=== PATIENT | male | born 1945 | race Caucasian/White ===

== ENCOUNTER 2021-03-25 06:18 | Inpatient (IN) | payer OTHER, SELFPAY ==
[2021-03-25] VITALS (12 sets, daily range): BP systolic 140–172; BP diastolic 69–91; PULSE 91–115; RESP 16–28; TEMP 36.2–37.2; O2SAT 85–95; BMI 29.7; BMI 27.8
--- NOTE | 2021-03-25 06:41 | CT_ITS ---
We are attempting to reach an attending provider to discuss findings. An addendum with communication details will be sent when the communication is complete. EXAM: CT ANGIOGRAPHY CHEST WITHOUT AND WITH INTRAVENOUS CONTRAST CLINICAL INDICATION: Lower abdominal pain, suspected COVID TECHNIQUE: Helically acquired angiography images were obtained of the chest without and with intravenous contrast. This CT exam was performed using one or more of the following dose reduction techniques: automated exposure control, adjustment of the mA and/or kV according to patient size, and/or use of iterative reconstruction technique. This report was created using [employer] report generation technology. MIP reconstructed images were created and reviewed. CONTRAST: IV 100mL Isovue-370 COMPARISON: None. FINDINGS: PULMONARY ARTERIES: Small, subsegmental filling defects/emboli of the right lower lobe (image 77 series 2, for instance). No saddle embolus. Normal in caliber. AORTA: See below. GREAT VESSELS OF AORTIC ARCH: Unremarkable. Normal in caliber. No evidence of dissection. LUNGS AND PLEURAL SPACES: Multilobar interstitial and groundglass opacities with posterior dominant consolidative infiltrates. No mass. No pleural effusion or thickening. No pneumothorax. HEART: Coronary artery atherosclerosis. Mild atherosclerosis of the thoracic aorta. No pericardial effusion. No signs of right heart strain. MEDIASTINUM: Mildly prominent lymph nodes of the bilateral jorge and mediastinum without dominant destiny mass. Small hiatal hernia. Esophagus is unremarkable. THYROID: Unremarkable. No thyroid lesions. BONES/JOINTS: Unremarkable. No suspicious lytic or blastic abnormality. CT/CTA Chest W/WO Contrast IMPRESSION: 1. Small, subsegmental pulmonary artery filling defects/emboli of the right lower lobe (image 77 series 2, for instance). No saddle embolus. No CTA evidence of right heart strain. 2. Multilobar interstitial and groundglass opacities with posterior dominant consolidative infiltrates. Imaging features are commonly reported with COVID pneumonia. Electronically Signed: Balaji Warren MD (Brooks) at 8:14 EST , Service support ,
--- NOTE | 2021-03-25 06:41 | EKG12_ITS ---
Test Reason : ABD PAIN Blood Pressure : / mmHG Vent. Rate : 106 BPM Atrial Rate : 106 BPM P-R Int : 158 ms QRS Dur : 090 ms QT Int : 366 ms P-R-T Axes : 063 -24 011 degrees QTc Int : 486 ms Sinus tachycardia Inferior infarct , age undetermined Abnormal ECG Confirmed by KENDALL PAIGE, ROBINA ([id number]), movie editor TELLY LAMB ([id number]) on 03/27/2021 6:58:01 AM Referred By: LIVIER Confirmed By:ROBINA ARGUETA MD
--- NOTE | 2021-03-25 06:42 | CT_ITS ---
EXAM: CT ABDOMEN AND PELVIS WITH INTRAVENOUS CONTRAST CLINICAL INDICATION: LLQ pain TECHNIQUE: Helically acquired images were obtained of the abdomen and pelvis with intravenous contrast. This CT exam was performed using one or more of the following dose reduction techniques: automated exposure control, adjustment of the mA and/or kV according to patient size, and/or use of iterative reconstruction technique. This report was created using [employer] report generation technology. CONTRAST: IV 100mL Isovue-370 COMPARISON: None. FINDINGS: LOWER THORAX: Lung bases described on chest CTA, performed concurrently. Small hiatal hernia. No cardiomegaly. No significant pericardial effusion. ABDOMEN: LIVER: Unremarkable. Homogeneous. No focal mass. GALLBLADDER AND BILE DUCTS: Unremarkable. No calcified gallstones. No gallbladder distention or wall edema. No intra- or extrahepatic biliary ductal dilation. PANCREAS: Unremarkable. No focal cystic or solid mass. SPLEEN: Moderate sized area of diminished enhancement involving the medial spleen (image 22 series 3). ADRENALS: Unremarkable. No nodules. KIDNEYS AND URETERS: Unremarkable. Normal renal size and position. No hydronephrosis. STOMACH AND BOWEL: Diverticulosis throughout the colon. No pericolonic stranding. No stomach or bowel distention. No focal inflammatory change. PELVIS: APPENDIX: No evidence of acute appendicitis. BLADDER: Unremarkable. REPRODUCTIVE: Unremarkable as visualized. No mass. ABDOMEN and PELVIS: INTRAPERITONEAL SPACE: Unremarkable. No ascites or other fluid collection. No free air. BONES/JOINTS: Degenerative changes of the lumbar spine. No suspicious lytic or blastic abnormality. SOFT TISSUES: Small fat-containing right inguinal hernia. VASCULATURE: Atherosclerosis of the abdominal aorta and iliac arteries. Abdominal aorta is non-dilated. LYMPH NODES: Unremarkable. No enlarged lymph nodes. CT/Abdomen/Pelvis W IV Cont ONLY IMPRESSION: Moderate sized area of diminished enhancement involving the medial spleen (image 22 series 3). Suspect splenic infarction. N.B. : The above Results were Read Back by Balaji Warren MD (Brooks) to MD Nemo, and understanding confirmed on 03/25/2021 08:18:11 (ET). Electronically Signed: Balaji Warren MD (Brooks) at 8:19 EST , Service support ,
--- NOTE | 2021-03-25 06:43 | EX.ED.DYSGE1 ---
HPI <Dr. Ishaan Trejo MD - Last Filed: 03/25/21 22:21> History of Present Illness Chief Complaint: Abd Pain Informant: patient Narrative Narrative: Patient's primary reason for coming in is left lower quadrant pain. This started last night at around 10:00 but seems to be worsening. He has had some nausea and dry heaves at home which is what brought him in. No diarrhea or blood in the stool. He does have a history of diverticula but has never had diverticulitis. Pain does not radiate anywhere. Patient also has pulmonary complaints. He started with Covid type symptoms on approximately the sixth of this month. He tested positive on the . He thought he was getting better but then then over the last few days he seems to be worsening. He is thinks he is coughing a little bit more and he is more short of breath than he was. He is not having chest pain. No hemoptysis. No leg pain or swelling. Patient is not the best informant for his past medical history. Past medical history: Diabetes and diabetic neuropathy Medications include medications for his neuropathy and diabetes but he cannot name them. Allergy to penicillin Prior surgery: Heart catheterization but he was told everything was normal and no stents Lives independently, former smoker quit many years ago. [facility] <Dr. Ishaan Trejo MD - Last Filed: 03/25/21 22:21> [facility] Medical History (Updated 03/25/21 @ 15:[address] Bacilio Yuan MD) Benign prostatic hyperplasia Diabetes mellitus, type 2 Hyperlipidemia Home Medications atorvastatin 20 mg PO QHS 03/25/21 [History Last Taken Unknown] calcium polycarbophil 625 mg PO DAILY 03/25/21 [History Last Taken Unknown] camphor-menthol 1 applic TOPICAL 5X/DAY PRN 03/25/21 [History Last Taken Unknown] cetirizine 10 mg PO DAILY 03/25/21 [History Last Taken Unknown] cholecalciferol (vitamin D3) 50 mcg PO DAILY 03/25/21 [History Last Taken Unknown] colestipol 1 g PO BID 03/25/21 [History Last Taken Unknown] cyanocobalamin (vitamin B-12) 1,000 mcg PO DAILY 03/25/21 [History Last Taken Unknown] cyclosporine 1 drp EACH EYE Q12H 03/25/21 [History Last Taken Unknown] diclofenac sodium 2 g TOPICAL BID 03/25/21 [History Last Taken Unknown] empagliflozin 12.5 mg PO DAILY 03/25/21 [History Last Taken Unknown] finasteride 5 mg PO DAILY 03/25/21 [History Last Taken Unknown] fluticasone propionate 2 spray INTRANASAL DAILY 03/25/21 [History Last Taken Unknown] hydrocortisone 1 applic TOPICAL BID PRN 03/25/21 [History Last Taken Unknown] ketoconazole 1 applic TOPICAL DAILY 03/25/21 [History Last Taken Unknown] pregabalin 100 mg PO BID 03/25/21 [History Last Taken Unknown] tamsulosin 0.8 mg PO QHS 03/25/21 [History Last Taken Unknown] vardenafil 20 mg PO DAILY PRN 03/25/21 [History Last Taken Unknown] vit C-vit [id number] [Ocuvite] 1 cap PO BID 03/25/21 [History Last Taken Unknown] Allergy/AdvReac Type Severity Reaction Status Date / Time Penicillins [PCN] Allergy Shortness Verified 03/25/21 06:20 of breath Family History (Updated 03/25/21 @ 15:[address] Bacilio Yuan MD) Other Cancer Social History Smoking Status: Former smoker ROS <Dr. Ishaan Trejo MD - Last Filed: 03/25/21 22:21> ROS ED Constitutional Constitutional ED: Reports subjective Eyes Eyes: Denies blurry vision ENT ENT ED: Reports rhinorrhea and sore throat Cardiovascular Cardiovascular: Denies chest pain or palpitations Respiratory/Chest Respiratory/Chest: Reports cough, dyspnea and dyspnea on exertion; Denies sputum Gastrointestinal Gastrointestinal: Reports abdominal pain, nausea and vomiting; Denies diarrhea Genitourinary Genitourinary ED: Denies dysuria or hematuria Musculoskeletal Musculoskeletal: Denies back pain Integumentary Denies rash Neurologic Neurologic: Denies headache(s), paresthesias or weakness Endocrine Endocrinology: Denies polydipsia or polyuria Allergic/Immunologic Allergic/Immunologic ED: Denies urticaria EXAM <Dr. Ishaan Trejo MD - Last Filed: 03/25/21 22:21> Physical Exam Const Vital Signs: 03/25/21 06:19 03/25/21 06:20 03/25/21 06:54 Temperature 98.4 F Temperature Source Oral Pulse Rate 115 H 108 H Respiratory Rate 22 H 28 H Blood Pressure 172/90 H 166/85 H Blood Pressure Mean 117 112 Pulse Ox 85 88 95 Oxygen Delivery Method Room Air Nasal Cannula Nasal Cannula Oxygen Flow Rate (L/min) 4 4 Patient is nontoxic but he does look somewhat ill. He has increased work of breathing. He looks a little bit uncomfortable. Positive well nourished and well developed General Appearance ED: well developed HEENT Reports dry mucous membranes Negative for trauma Mouth ED: Yes dry mucous membranes Mouth: dry mucous membranes Eyes General Eye ED: Negative for pale conjunctiva or scleral icterus Neck no JVD Resp No clear to auscultation bilaterally Resp Narrative: Bilateral coarse breath sounds. Effort and Inspection: Negative for pain with movement Auscultation: rhonchi and diminished lung sounds; Negative for rales or wheezes Cardio regular rhythm Rate: tachycardic GI normal to inspection, nondistended, normoactive bowel sounds GI Narrative: Abdomen is soft and nondistended. However, he does have reproducible tenderness toward the left lower quadrant. No rebound or guarding. Palpation: soft; Negative for guarding or rebound tenderness present Back/Spine no CVA tenderness Extremity normal to inspection General Extremety ED: Negative for edema or tenderness General Extremity: Negative for edema Neuro oriented x3 Sensorium / Orientation: alert Psych mental status grossly normal Skin no rashes or lesions noted <Milan Chester MD - Last Filed: 03/25/21 08:56> Physical Exam Const Vital Signs: 03/25/21 06:19 03/25/21 06:20 03/25/21 06:54 Temperature 98.4 F Temperature Source Oral Pulse Rate 115 H 108 H Respiratory Rate 22 H 28 H Blood Pressure 172/90 H 166/85 H Blood Pressure Mean 117 112 Pulse Ox 85 88 95 Oxygen Delivery Method Room Air Nasal Cannula Nasal Cannula Oxygen Flow Rate (L/min) 4 4 MDM <Dr. Ishaan Trejo MD - Last Filed: 03/25/21 22:21> [facility] MDM Narrative Medical decision making narrative: Patient's blood work showed overall normal CBC. Electrolytes were normal. Liver function tests were overall okay. Lactate was up mildly at 2.3. He was given some IV fluids. Covid was pending. Images are pending. Patient is turned over to the oncoming physician. Lab Data Attestation: I reviewed the patient's lab results. Labs: Laboratory Results - last 24 hr 03/25/21 03/25/21 03/25/21 06:30 06:30 06:30 WBC 10.7 RBC 4.58 L Hgb 14.6 Hct 42.7 MCV 93.2 MCH 31.9 MCHC 34.2 RDW Std Deviation 42.5 RDW Coeff of Quin 12.3 Plt Count 300 MPV 10.8 Immature Gran % (Auto) 1.000 H Neut % (Auto) 83.2 H Lymph % (Auto) 9.8 L [place] % (Auto) 5.5 Eos % (Auto) 0.2 Baso % (Auto) 0.3 Absolute Neuts (auto) 8.9 H Absolute Lymphs (auto) 1.05 Nucleated RBC % 0 PT INR APTT Sodium 135 L Potassium 3.6 Chloride 101 Carbon Dioxide 22.0 Anion Gap 12 BUN 14 Creatinine 0.97 Estim Creat Clear Calc 72.22 Est GFR (MDRD) Af Amer 97 Est GFR (MDRD) Non-Af 80 BUN/Creatinine Ratio 14.5 Glucose 194 H Lactic Acid 2.3 H* Calcium 8.3 L Total Bilirubin 0.60 AST 26 ALT 24 Alkaline Phosphatase 70 Troponin I High Sens 8 Total Protein 7.3 Albumin 2.0 L Globulin 5.3 H Albumin/Globulin Ratio 0.4 L Urine Color Urine Clarity Urine pH Ur Specific [place] Urine Protein Urine Glucose (UA) Urine Ketones Urine Occult Blood Urine Nitrite Urine Bilirubin Urine Urobilinogen Ur Leukocyte Esterase Urine RBC Urine WBC Ur Squamous Epith Cells Urine Bacteria Urine Mucus 03/25/21 03/25/21 06:30 08:06 WBC RBC Hgb Hct MCV MCH MCHC RDW Std Deviation RDW Coeff of Quin Plt Count MPV Immature Gran % (Auto) Neut % (Auto) Lymph % (Auto) [place] % (Auto) Eos % (Auto) Baso % (Auto) Absolute Neuts (auto) Absolute Lymphs (auto) Nucleated RBC % PT 15.3 H INR 1.3 APTT 33.3 Sodium Potassium Chloride Carbon Dioxide Anion Gap BUN Creatinine Estim Creat Clear Calc Est GFR (MDRD) Af Amer Est GFR (MDRD) Non-Af BUN/Creatinine Ratio Glucose Lactic Acid Calcium Total Bilirubin AST ALT Alkaline Phosphatase Troponin I High Sens Total Protein Albumin Globulin Albumin/Globulin Ratio Urine Color Yellow Urine Clarity Clear Urine pH 5.0 Ur Specific [place] 1.020 Urine Protein 30 H Urine Glucose (UA) 1000 H Urine Ketones 150 A* Urine Occult Blood 10 H Urine Nitrite Negative Urine Bilirubin Negative Urine Urobilinogen Normal Ur Leukocyte Esterase Negative Urine RBC 0-5 SEEN Urine WBC 0 SEEN Ur Squamous Epith Cells 0 SEEN Urine Bacteria 0 SEEN Urine Mucus 0 SEEN Radiography Diagnostic Testing: Clinical Impression(s) from Imaging Studies Chest CTA 03/25/21 06:41 IMPRESSION: 1. Small, subsegmental pulmonary artery filling defects/emboli of the right lower lobe (image 77 series 2, for instance). No saddle embolus. No CTA evidence of right heart strain. 2. Multilobar interstitial and groundglass opacities with posterior dominant consolidative infiltrates. Imaging features are commonly reported with COVID pneumonia. Electronically Signed: Balaji Warren MD (Brooks) at 8:14 EST , Service support , ADDENDUM: 03/25/21 0824 IMPRESSION: 1. Small, subsegmental pulmonary artery filling defects/emboli of the right lower lobe (image 77 series 2, for instance). No saddle embolus. No CTA evidence of right heart strain. 2. Multilobar interstitial and groundglass opacities with posterior dominant consolidative infiltrates. Imaging features are commonly reported with COVID pneumonia. N.B. : The above Results were Read Back by Balaji Warren MD (Brooks) to MD Ashly, and understanding confirmed on 03/25/2021 08:17:12 (ET). Electronically Signed: Balaji Warren MD (Brooks) at 8:14 EST , Service support , Abdomen/Pelvis CT 03/25/21 06:42 IMPRESSION: Moderate sized area of diminished enhancement involving the medial spleen (image 22 series 3). Suspect splenic infarction. N.B. : The above Results were Read Back by Balaji Warren MD (Brooks) to MD Nemo, and understanding confirmed on 03/25/2021 08:18:11 (ET). Electronically Signed: Balaji Warren MD (Brooks) at 8:19 EST , Service support , ADDENDUM: 03/25/21825 IMPRESSION: Moderate sized area of diminished enhancement involving the medial spleen (image 22 series 3). Suspect splenic infarction. N.B. : The above Results were Read Back by Balaji Warren MD (Brooks) to MD Nemo, and understanding confirmed on 03/25/2021 08:18:11 (ET). Electronically Signed: Balaji Warren MD (Brooks) at 8:19 EST , Service support , <Milan Chester MD - Last Filed: 03/25/21 08:56> MDM MDM Narrative Medical decision making narrative: Dr. Chester: Patient endorsed to me by Dr. Trejo to check the remaining laboratory work and CT scans on this patient. Laboratory work was reviewed. He has normal white count at 10.7, hemoglobin stable at 14.6. Sodium slightly low at 135, normal BUN and creatinine. Lactic acid is slightly elevated 2.3. He had already been given a 500 cc bolus. With his history of Covid, we are hesitant to give him a large amount of fluid bolus. I received a call from the radiologist that the patient does have lower lobe segmental pulmonary emboli, and a splenic infarct but no evidence of diverticulitis. Upon repeat examination, patient was having left upper quadrant to left flank abdominal pain. He was administered morphine 4 mg intravenously. Heparin bolus was ordered along with GTT. He was warned of the risk of bleeding intracranially and in the GI system and acknowledges understanding. Patient was discussed with the hospitalist, Dr. Yuan, who will admit the patient to the PCU. Patient's Covid test is negative, however he has been 2 weeks into his symptoms. Disposition is admit in stable condition. Lab Data Attestation: I reviewed the patient's lab results. Labs: Laboratory Results - last 24 hr 03/25/21 03/25/21 03/25/21 06:30 06:30 06:30 WBC 10.7 RBC 4.58 L Hgb 14.6 Hct 42.7 MCV 93.2 MCH 31.9 MCHC 34.2 RDW Std Deviation 42.5 RDW Coeff of Quin 12.3 Plt Count 300 MPV 10.8 Immature Gran % (Auto) 1.000 H Neut % (Auto) 83.2 H Lymph % (Auto) 9.8 L [place] % (Auto) 5.5 Eos % (Auto) 0.2 Baso % (Auto) 0.3 Absolute Neuts (auto) 8.9 H Absolute Lymphs (auto) 1.05 Nucleated RBC % 0 PT INR APTT Sodium 135 L Potassium 3.6 Chloride 101 Carbon Dioxide 22.0 Anion Gap 12 BUN 14 Creatinine 0.97 Estim Creat Clear Calc 72.22 Est GFR (MDRD) Af Amer 97 Est GFR (MDRD) Non-Af 80 BUN/Creatinine Ratio 14.5 Glucose 194 H Lactic Acid 2.3 H* Calcium 8.3 L Total Bilirubin 0.60 AST 26 ALT 24 Alkaline Phosphatase 70 Troponin I High Sens 8 Total Protein 7.3 Albumin 2.0 L Globulin 5.3 H Albumin/Globulin Ratio 0.4 L Urine Color Urine Clarity Urine pH Ur Specific [place] Urine Protein Urine Glucose (UA) Urine Ketones Urine Occult Blood Urine Nitrite Urine Bilirubin Urine Urobilinogen Ur Leukocyte Esterase Urine RBC Urine WBC Ur Squamous Epith Cells Urine Bacteria Urine Mucus 03/25/21 03/25/21 06:30 08:06 WBC RBC Hgb Hct MCV MCH MCHC RDW Std Deviation RDW Coeff of Quin Plt Count MPV Immature Gran % (Auto) Neut % (Auto) Lymph % (Auto) [place] % (Auto) Eos % (Auto) Baso % (Auto) Absolute Neuts (auto) Absolute Lymphs (auto) Nucleated RBC % PT 15.3 H INR 1.3 APTT 33.3 Sodium Potassium Chloride Carbon Dioxide Anion Gap BUN Creatinine Estim Creat Clear Calc Est GFR (MDRD) Af Amer Est GFR (MDRD) Non-Af BUN/Creatinine Ratio Glucose Lactic Acid Calcium Total Bilirubin AST ALT Alkaline Phosphatase Troponin I High Sens Total Protein Albumin Globulin Albumin/Globulin Ratio Urine Color Yellow Urine Clarity Clear Urine pH 5.0 Ur Specific [place] 1.020 Urine Protein 30 H Urine Glucose (UA) 1000 H Urine Ketones 150 A* Urine Occult Blood 10 H Urine Nitrite Negative Urine Bilirubin Negative Urine Urobilinogen Normal Ur Leukocyte Esterase Negative Urine RBC 0-5 SEEN Urine WBC 0 SEEN Ur Squamous Epith Cells 0 SEEN Urine Bacteria 0 SEEN Urine Mucus 0 SEEN Radiography Diagnostic Testing: Clinical Impression(s) from Imaging Studies Chest CTA 03/25/21 06:41 IMPRESSION: 1. Small, subsegmental pulmonary artery filling defects/emboli of the right lower lobe (image 77 series 2, for instance). No saddle embolus. No CTA evidence of right heart strain. 2. Multilobar interstitial and groundglass opacities with posterior dominant consolidative infiltrates. Imaging features are commonly reported with COVID pneumonia. Electronically Signed: Balaji Warren MD (Brooks) at 8:14 EST , Service support , ADDENDUM: 03/25/21 0824 IMPRESSION: 1. Small, subsegmental pulmonary artery filling defects/emboli of the right lower lobe (image 77 series 2, for instance). No saddle embolus. No CTA evidence of right heart strain. 2. Multilobar interstitial and groundglass opacities with posterior dominant consolidative infiltrates. Imaging features are commonly reported with COVID pneumonia. N.B. : The above Results were Read Back by Balaji Warren MD (Brooks) to MD Ashly, and understanding confirmed on 03/25/2021 08:17:12 (ET). Electronically Signed: Balaji Warren MD (Brooks) at 8:14 EST , Service support , Abdomen/Pelvis CT 03/25/21 06:42 IMPRESSION: Moderate sized area of diminished enhancement involving the medial spleen (image 22 series 3). Suspect splenic infarction. N.B. : The above Results were Read Back by Balaji Warren MD (Brooks) to MD Nemo, and understanding confirmed on 03/25/2021 08:18:11 (ET). Electronically Signed: Balaji Warren MD (Brooks) at 8:19 EST , Service support , ADDENDUM: 03/25/21 0826 IMPRESSION: Moderate sized area of diminished enhancement involving the medial spleen (image 22 series 3). Suspect splenic infarction. N.B. : The above Results were Read Back by Balaji Warren MD (Brooks) to MD Nemo, and understanding confirmed on 03/25/2021 08:18:11 (ET). Electronically Signed: Balaji Warren MD (Brooks) at 8:19 EST , Service support , Discharge Plan Dx/Rx/DC Orders Clinical Impression: Pulmonary emboli, Splenic infarct, COVID, Abdominal pain Disposition Disposition: Acute Care Hospital [facility] Discharge Date/Time: 03/25/21 09:31
--- NOTE | 2021-03-25 06:48 | NURSING ---
NO OLD EKGS
[2021-03-25] MEDS: Ondansetron 4 MG/2 ML Vial IV (06:52)
[2021-03-25] MEDS: Morphine 4 MG/ML Syringe IV ×6 (06:55→21:40)
[2021-03-25 06:58] LABS: Absolute Lymphocyte Count 1.05 X10^3/uL (0.83-4.51); Absolute Neutrophil Count 8.9 X10^3/uL (2.0-7.7); Basophil# 0.03 X10^3/uL; Basophil% 0.3 % (0-1); Eosinophil# 0.02 X10^3/uL; Eosinophils% 0.2 % (0-5); Hematocrit 42.7 % (40-54); Hemoglobin 14.6 g/dL (13.0-16.5); Lymphocyte # 1.05 X10^3/ul (0.83-4.51); Lymphocyte % 9.8 % (19-41); Mean Corp Hgb Conc 34.2 g/dL (32-36); Mean Corpuscular Hgb 31.9 pg (27.0-32.0); Mean Corpuscular Volume 93.2 fL (80-94); Mean Platelet Vol. 10.8 fl (6.2-12.0); Monocyte# 0.59 X10^3/uL; Monocyte% 5.5 % (0-10); NRBC Flagged by Analyzer 0 % (0-5); Neutrophil # 8.89 X10^3/uL (2.7-7.7); Neutrophil % 83.2 % (47-70); Platelet Count 300 K/mm3 (150-450); RBC Distribution Width CV 12.3 % (11.6-14.6); RBC Distribution Width SD 42.5 fl (35.1-43.9); Red Blood Count 4.58 M/mm3 (4.6-6.2); White Blood Count 10.7 K/mm3 (4.4-11.0)
[2021-03-25 07:10] LABS: ALB/GLOB Ratio 0.4 RATIO (0.9-2.4); AST(SGOT) 26 U/L (15-37); Alanine Aminotransfer ALT/SGPT 24 U/L (16-61); Alkaline Phosphatase 70 U/L (45-117); Anion Gap 12 (5-15); BUN 14 mg/dL (7-18); BUN/Creat Ratio 14.5 RATIO (10-20); Calcium,Total 8.3 mg/dL (8.5-10.1); Chloride 101 mmol/L (98-107); Creatinine, Serum 0.97 mg/dL (0.70-1.30); EST Glomerular Filtration Rate 80 mL/min (>60); Est Glom Filt Rate - Afr Amer 97 mL/min (>60); Estimated Creatinine Clearance 72.22 ml/min; Globulin 5.3 g/dL (2.2-4.2); Glucose 194 mg/dL (74-106); Potassium 3.6 mmol/L (3.5-5.1); Protein, Total 7.3 g/dL (6.4-8.2); Sodium Level 135 mmol/L (136-145); Troponin-I HS 8 pg/mL (3.0-78.0)
[2021-03-25 07:19] LABS: Lactic Acid 2.3 mmol/L (0.4-1.9)
[2021-03-25 08:10] LABS: Bacteria 0 SEEN /hpf (None Seen); Mucous, Urine 0 SEEN /hpf (<or=2+); Squamous Epithelial Cells - UA 0 SEEN /hpf (0-5); White Blood Cells 0 SEEN /hpf (0-5)
[2021-03-25 08:13] LABS: Color, Urine Yellow (Yellow); Glucose, Dipstick 1000 mg/dl (Normal); Leukocyte Esterase-Dipstick Negative /ul (Negative); Nitrite-Dipstick Negative (Negative); Occult Blood-Urine 10 /ul (Negative); Protein-Dipstick 30 mg/dl (Negative); Urine Bilirubin Dipstick Negative (Negative); Urine Clarity Clear (Clear); Urine Urobilinogen Normal (Normal)
[2021-03-25 08:17] LABS: Ketone-Dipstick 150 mg/dl (Negative)
[2021-03-25 08:22] LABS: Red Blood Cells-Urine 0-5 SEEN /hpf (0-5)
--- NOTE | 2021-03-25 08:49 | NURSING ---
CALLED NEDA WILKINSON AND LEFT MESSAGE.
--- NOTE | 2021-03-25 09:01 | NURSING ---
PCU [facility] PULMON[facility] EMBOLI, SPLENIC INFARCT
[2021-03-25] MEDS: Heparin Injection (Vial) 5,000 UNIT/ML VIAL 7500 UNIT IV (09:09)
[2021-03-25 09:12] LABS: International Normalized Ratio 1.3; Partial Thromboplast Time 33.3 Seconds (24.1-36.2); Prothrombin Time (Protime)PT. 15.3 SECONDS (11.7-14.9)
[2021-03-25] MEDS: HEPARIN/D5w 25,000 UNITS 25,000 UNITS/250 ML IV.SOLN. 14 UNITS IV (09:28)
[2021-03-25] MEDS: 0.9% Normal Saline 1,000 ML 75 ML IV ×2 (10:50→22:53)
[2021-03-25 10:52] LABS: Reflex Lactate? Y
--- NOTE | 2021-03-25 11:43 | NURSING ---
NEDA PRATER, CALLED BACK. SHE RECEIVED INFO ON PATIENT
[2021-03-25 11:50] LABS: Lactic Acid 1.1 mmol/L (0.4-1.9)
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
[2021-03-25] MEDS: dexAMETHasone 4 MG Tablet 6 MG PO (14:04)
[2021-03-25] MEDS: APIXABAN 5 MG TABLET 10 MG PO ×2 (14:05→21:37)
--- NOTE | 2021-03-25 15:19 | HP.PCM.HOS_ITS ---
HPI - General General Date of Admission: 03/25/21 HPI Narrative PACO KUMAR, is a 75 M who presents to the hospital with worsening shortness of breath and left-sided abdominal pain. He tested positive for Covid on the but started having symptoms around 07 March. He was not needing any oxygen until he presented to this hospital where he was found to have a pulse ox of 85% on room air. He is maintaining his oxygen saturations now on 2 L nasal cannula. He was found to have a right-sided subsegmental PE as well as a splenic infarct on CT scan. He was initially started on a heparin drip and transition to p.o. Eliquis. He denies any recent illness and does not have blood clots in the family. CT scan was negative for any pancreatitis or infectious etiology for the splenic infarct. There is evidence of hypercoagulable state in the setting of Covid which could be the cause of this. [facility] Medical History (Updated 03/25/21 @ 15:[address] Bacilio Yuan MD) Benign prostatic hyperplasia Diabetes mellitus, type 2 Hyperlipidemia Medical History no medical history Home Medications atorvastatin 20 mg PO QHS 03/25/21 [History Last Taken Unknown] calcium polycarbophil 625 mg PO DAILY 03/25/21 [History Last Taken Unknown] camphor-menthol 1 applic TOPICAL 5X/DAY PRN 03/25/21 [History Last Taken Unknown] cetirizine 10 mg PO DAILY 03/25/21 [History Last Taken Unknown] cholecalciferol (vitamin D3) 50 mcg PO DAILY 03/25/21 [History Last Taken Unknown] colestipol 1 g PO BID 03/25/21 [History Last Taken Unknown] cyanocobalamin (vitamin B-12) 1,000 mcg PO DAILY 03/25/21 [History Last Taken Unknown] cyclosporine 1 drp EACH EYE Q12H 03/25/21 [History Last Taken Unknown] diclofenac sodium 2 g TOPICAL BID 03/25/21 [History Last Taken Unknown] empagliflozin 12.5 mg PO DAILY 03/25/21 [History Last Taken Unknown] finasteride 5 mg PO DAILY 03/25/21 [History Last Taken Unknown] fluticasone propionate 2 spray INTRANASAL DAILY 03/25/21 [History Last Taken Unknown] hydrocortisone 1 applic TOPICAL BID PRN 03/25/21 [History Last Taken Unknown] ketoconazole 1 applic TOPICAL DAILY 03/25/21 [History Last Taken Unknown] pregabalin 100 mg PO BID 03/25/21 [History Last Taken Unknown] tamsulosin 0.8 mg PO QHS 03/25/21 [History Last Taken Unknown] vardenafil 20 mg PO DAILY PRN 03/25/21 [History Last Taken Unknown] vit C-vit [id number] [Ocuvite] 1 cap PO BID 03/25/21 [History Last Taken Unknown] Allergy/AdvReac Type Severity Reaction Status Date / Time Penicillins [PCN] Allergy Shortness Verified 03/25/21 06:20 of breath Family History (Updated 03/25/21 @ 15:[address] Bacilio Yuan MD) Other Cancer no surgical history Social History Smoking Status: Former smoker ROS Constitutional Constitutional: Denies chills, fatigue, fever(s) or malaise Eyes Eyes: Denies blurry vision ENT HEENT: Denies headache(s) or nasal discharge Cardiovascular Cardiovascular: Reports dyspnea on exertion; Denies chest pain or syncope Respiratory/Chest Respiratory/Chest: Reports shortness of breath at rest; Denies cough or shortness of breath with exertion Gastrointestinal Gastrointestinal: Reports abdominal pain; Denies constipation, diarrhea, nausea or vomiting Genitourinary Genitourinary: Denies dysuria Neurologic Neurologic: Denies focal weakness, numbness or tremor(s) Psychiatric Psychiatric: Denies anxiety or depression Vital Signs Vital Signs Vital Signs: 03/25/21 06:19 03/25/21 06:20 03/25/21 06:54 Temperature 98.4 F Temperature Source Oral Pulse Rate 115 H 108 H Respiratory Rate 22 H 28 H Blood Pressure 172/90 H 166/85 H Blood Pressure Mean 117 112 Blood Pressure Source Blood Pressure Position Blood Pressure Location Pulse Ox 85 88 95 Oxygen Delivery Method Room Air Nasal Cannula Nasal Cannula Oxygen Flow Rate (L/min) 4 4 03/25/21 08:56 03/25/21 09:29 03/25/21 10:00 Temperature 97.1 F L 99.0 F Temperature Source Temporal Oral Pulse Rate 104 H 100 96 Respiratory Rate 22 H 19 H 18 Blood Pressure 160/87 H 155/91 H 160/81 H Blood Pressure Mean 111 112 107 Blood Pressure Source Monitor Blood Pressure Position Semi-Fowlers Blood Pressure Location Right Arm Pulse Ox 93 93 95 Oxygen Delivery Method Nasal Cannula Nasal Cannula Nasal Cannula Oxygen Flow Rate (L/min) 3 3 2 03/25/21 10:48 03/25/21 14:45 Temperature Temperature Source Pulse Rate 95 Respiratory Rate Blood Pressure Blood Pressure Mean Blood Pressure Source Blood Pressure Position Blood Pressure Location Pulse Ox 94 Oxygen Delivery Method Nasal Cannula Oxygen Flow Rate (L/min) 2 Weight Weight: 204 lb 12.951 oz Body Mass Index (BMI) 27.8 Physical Exam Const alert, oriented x3 and no apparent distress General Appearance: cooperative HEENT normocephalic and moist oral mucous membranes Eyes PERRL, EOMs intact bilaterally and conjunctivae normal Neck supple and no JVD Resp normal respiratory effort, no retractions and no use of accessory muscles Auscultation: wheezes; Negative for crackles, rales or rhonchi Cardio regular rate, regular rhythm, S1 normal heart sound, S2 normal heart sound and no murmurs GI soft to palpation, non-tender and non-distended; Negative for hepatosplenomegaly Extremity no clubbing, cyanosis or edema Skin no rashes or lesions noted Neuro no focal motor deficits and no sensory deficits noted Psych affect normal Appearance: appropriate Results Lab / Micro Data Result Diagrams: 03/25/21 06:30 03/25/21 06:30 Labs: Laboratory Results - last 24 hr 03/25/21 06:30: WBC 10.7, RBC 4.58 L, Hgb 14.6, Hct 42.7, MCV 93.2, MCH 31.9, MCHC 34.2, RDW Std Deviation 42.5, RDW Coeff of Quin 12.3, Plt Count 300, MPV 10.8, Immature Gran % (Auto) 1.000 H, Neut % (Auto) 83.2 H, Lymph % (Auto) 9.8 L , [place] % (Auto) 5.5, Eos % (Auto) 0.2, Baso % (Auto) 0.3, Absolute Neuts (auto) 8.9 H, Absolute Lymphs (auto) 1.05, Nucleated RBC % 0 03/25/21 06:30: Sodium 135 L, Potassium 3.6, Chloride 101, Carbon Dioxide 22.0, Anion Gap 12, BUN 14, Creatinine 0.97, Estim Creat Clear Calc 72.22, Est GFR (MDRD) Af Amer 97, Est GFR (MDRD) Non-Af 80, BUN/Creatinine Ratio 14.5, Glucose 194 H, Calcium 8.3 L, Total Bilirubin 0.60, AST 26, ALT 24, Alkaline Phosphatase 70, Troponin I High Sens 8, Total Protein 7.3, Albumin 2.0 L, Globulin 5.3 H, Albumin/Globulin Ratio 0.4 L 03/25/21 06:30: Lactic Acid 2.3 H* 03/25/21 06:30: PT 15.3 H, INR 1.3, APTT 33.3 03/25/21 08:06: Urine Color Yellow, Urine Clarity Clear, Urine pH 5.0, Ur Specific [place] 1.020, Urine Protein 30 H, Urine Glucose (UA) 1000 H, Urine Ketones 150 A*, Urine Occult Blood 10 H, Urine Nitrite Negative, Urine Bilirubin Negative, Urine Urobilinogen Normal, Ur Leukocyte Esterase Negative, Urine RBC 0-5 SEEN, Urine WBC 0 SEEN, Ur Squamous Epith Cells 0 SEEN, Urine Bacteria 0 SEEN, Urine Mucus 0 SEEN 03/25/21 11:07: Lactic Acid 1.1 Micro: Microbiology 03/25/21 06:47 Nasal Secretion SARS-CoV-2 Antigen (Rapid) - Final Radiology Impression Chest CTA 03/25/21 06:41 IMPRESSION: 1. Small, subsegmental pulmonary artery filling defects/emboli of the right lower lobe (image 77 series 2, for instance). No saddle embolus. No CTA evidence of right heart strain. 2. Multilobar interstitial and groundglass opacities with posterior dominant consolidative infiltrates. Imaging features are commonly reported with COVID pneumonia. Electronically Signed: Balaji Warren MD (Brooks) at 8:14 EST , Service support , ADDENDUM: 03/25/21 9840 IMPRESSION: 1. Small, subsegmental pulmonary artery filling defects/emboli of the right lower lobe (image 77 series 2, for instance). No saddle embolus. No CTA evidence of right heart strain. 2. Multilobar interstitial and groundglass opacities with posterior dominant consolidative infiltrates. Imaging features are commonly reported with COVID pneumonia. N.B. : The above Results were Read Back by Balaji Warren MD (Brooks) to MD Ashly, and understanding confirmed on 03/25/2021 08:17:12 (ET). Electronically Signed: Balaji Warren MD (Brooks) at 8:14 EST , Service support , Abdomen/Pelvis CT 03/25/21 06:42 IMPRESSION: Moderate sized area of diminished enhancement involving the medial spleen (image 22 series 3). Suspect splenic infarction. N.B. : The above Results were Read Back by Balaji Warren MD (Brooks) to MD Nemo, and understanding confirmed on 03/25/2021 08:18:11 (ET). Electronically Signed: Balaji Warren MD (Brooks) at 8:19 EST , Service support , ADDENDUM: 03/25/21 0826 IMPRESSION: Moderate sized area of diminished enhancement involving the medial spleen (image 22 series 3). Suspect splenic infarction. N.B. : The above Results were Read Back by Balaji Warren MD (Brooks) to MD Nemo, and understanding confirmed on 03/25/2021 08:18:11 (ET). Electronically Signed: Balaji Warren MD (Brooks) at 8:19 EST , Service support , Assessment & Plan Assessment/Plan (1) Splenic infarct: (2) Pulmonary emboli: (3) Pneumonia due to COVID-19 virus: PLAN: 1. Acute hypoxic respiratory failure secondary to COVID-19 pneumonia and pulmonary embolism ?We will place him on Decadron given his oxygen requirements but he is almost 20 days out from symptom onset ?Continue with incentive spirometry and Pep ?Continue with Eliquis 10 mg p.o. twice daily and transition to 5 mg p.o. twice daily on discharge ?We will have him follow-up with hematology on discharge ?He does have wheezing therefore will place him on duo nebs. He is a former smoker and states that he has an inhaler but he does not use it very frequently. He likely does have a history of COPD ?Strep urine antigen and Legionella antigen are pending 2. Splenic infarct ?Continue with IV fluids ?This is likely related to his hypercoagulable state from Covid however would recommend outpatient follow-up with hematology in regards to the infarct as well as to the pulmonary embolisms 3. DM2 ?We will hold his home blood sugar medications ?Placed on sliding scale insulin with Accu-Cheks AC at bedtime ?We will adjust insulin dosing as necessary 4. Hyperlipidemia ?Continue with Lipitor 5. BPH ?Stable ?Continue with home medications DVT: Eliquis Charges/Coding Visit Charges Inpatient E&M: 76792 Init Hosp L3
--- NOTE | 2021-03-25 16:06 | CASEMGMT ---
JULIOCESAR did talk with Jane at [facility]. JULIOCESAR explained the situation. There really is not anything that can be done. Patient knows to call the police if he feels threatened. Patient can also evict his son and he is aware of this. Shannan Juarez BANQUET SET UP PERSON DAVE
--- NOTE | 2021-03-25 16:30 | CASEMGMT ---
RN GENEVIEVE SALES PROJECT ADMINISTRATOR CM to room to meet with patient for initial transition planning/care coordination assessment. DRAKE VALLEJO introduced self and role at [facility]. Pt voices understanding and consents to assessment at this time. Pt resting in bed in no distress at this time. Pt is A/O at this time and answers all questions appropriately. Care providers, pharmacy, and demographics verified/updated at this time. PCP: Sarai RIVER. Sees Dr Mannie Hyatt [facility]: [facility]. [facility] Benefit: Yes. Gets all of his medications thru the [facility], but could get them @ [facility] for short-term fill. Anticipate pt will d/c home on Eliquis. Pt provided / day savings card and instructed on use. Pt aware to contact PCP @ [facility] to set up an appt to be seen for f/u after hospitalization and to get script from [facility] for Eliquis. Pt voices understanding. Living Will/HPOA: does not have LW or HCPOA . He would like for his brother, Musa to be his POA, as he and his are . Interested in more information but does not want to talk with SW at this time to complete paperwork. Provided information on advanced directives and given Social Service rac card with number to call if chooses in the future to utilize [facility] social work for advanced directive completion. Educated patient that, if patient so chooses, can come back to [facility] and meet with a SW as an outpatient to complete health care advanced directives. Patient expresses understanding. LNOK: Pt is , but they are . Pt wishes for 1st contact to be his brother, Musa. Pt did wish to list his on as 2nd contact. Living Arrangements: Lives in one-story home w/basement. Back entrance to home has 3 steps. Front entrance has 8-10. Son and nephew live in the in-law suite in the basement. Nephews friend lives in a trailer on his property. Pt is independent w/ADL's and IADL's. He manages his own medication and appts. Transportation: Pt states drives self and states no transportation concerns at this time. Brother will take him home @ d/c. DME: has the following DME: Has several canes and a walker, but only uses canes on occasion and does not use the walker. Has a pulse ox. No home O2. Provided w/list of local DME companies that provide Oxygen and instructed on process for home O2 set up. Pt denies having a preference. HHC/SNF: No history of either. Denies need for HHC. Pt wishes to return home and states has no concerns with going home at time of discharge. Follow for home oxygen needs and any further discharge planning/needs. Pt voices no further concerns/needs at this time. Advised pt to inform staff if any further questions/concerns/needs arise. Voices understanding. PLAN: Home w/discharge plans in place. Follow for any O2 needs @ discharge. Green sheet placed on chart w/instructions for O2 set up if pt qualifies. Pt has been given [employer] day savings card and instructed on use. Tarik HINOJOSAN RN CM
[2021-03-25 16:51] LABS: Bedside Glucose 128 mg/dL (70-110)
[2021-03-25 20:45] LABS: Partial Thromboplast Time 61.7 Seconds (24.1-36.2)
[2021-03-25] MEDS: Atorvastatin Calcium 20 MG Tablet PO (21:37)
[2021-03-25] MEDS: Pregabalin 50 MG Capsule 100 MG PO (21:37)
[2021-03-25] MEDS: Insulin Lispro 100 UNIT/ML INSULN.PEN SC (21:44)
[2021-03-25 22:16] LABS: Bedside Glucose 404 mg/dL (70-110)
[2021-03-25 23:00] LABS: Bedside Glucose 356 mg/dL (70-110)
[2021-03-26] VITALS (15 sets, daily range): BP systolic 154–175; BP diastolic 62–86; PULSE 68–100; RESP 16–18; TEMP 36.2–37.2; O2SAT 83–95
[2021-03-26] MEDS: Morphine 4 MG/ML Syringe IV ×4 (03:00→20:55)
[2021-03-26 06:27] LABS: Absolute Lymphocyte Count 0.98 X10^3/uL (0.83-4.51); Absolute Neutrophil Count 8.4 X10^3/uL (2.0-7.7); Basophil# 0.01 X10^3/uL; Basophil% 0.1 % (0-1); Hematocrit 38.6 % (40-54); Hemoglobin 13.2 g/dL (13.0-16.5); Lymphocyte # 0.98 X10^3/ul (0.83-4.51); Lymphocyte % 9.6 % (19-41); Mean Corp Hgb Conc 34.2 g/dL (32-36); Mean Corpuscular Hgb 32.5 pg (27.0-32.0); Mean Corpuscular Volume 95.1 fL (80-94); Mean Platelet Vol. 10.3 fl (6.2-12.0); Monocyte# 0.74 X10^3/uL; Monocyte% 7.3 % (0-10); NRBC Flagged by Analyzer 0 % (0-5); Neutrophil # 8.38 X10^3/uL (2.7-7.7); Neutrophil % 82.1 % (47-70); Platelet Count 291 K/mm3 (150-450); RBC Distribution Width CV 12.1 % (11.6-14.6); RBC Distribution Width SD 42.5 fl (35.1-43.9); Red Blood Count 4.06 M/mm3 (4.6-6.2); White Blood Count 10.2 K/mm3 (4.4-11.0)
[2021-03-26 07:22] LABS: ALB/GLOB Ratio 0.4 RATIO (0.9-2.4); AST(SGOT) 22 U/L (15-37); Alanine Aminotransfer ALT/SGPT 19 U/L (16-61); Albumin, Serum 1.6 g/dL (3.2-5.0); Alkaline Phosphatase 63 U/L (45-117); Anion Gap 6 (5-15); BUN 14 mg/dL (7-18); BUN/Creat Ratio 18.8 RATIO (10-20); Calcium,Total 7.8 mg/dL (8.5-10.1); Chloride 104 mmol/L (98-107); Creatinine, Serum 0.74 mg/dL (0.70-1.30); EST Glomerular Filtration Rate 109 mL/min (>60); Est Glom Filt Rate - Afr Amer 132 mL/min (>60); Estimated Creatinine Clearance 70.06 ml/min; Globulin 4.4 g/dL (2.2-4.2); Glucose 227 mg/dL (74-106); Potassium 4.3 mmol/L (3.5-5.1); Sodium Level 136 mmol/L (136-145)
[2021-03-26] MEDS: 0.9% Saline Lock 10 ML Syringe IV ×3 (10:42→20:56)
[2021-03-26] MEDS: Insulin Lispro 100 UNIT/ML INSULN.PEN SC ×3 (10:43→21:02)
[2021-03-26] MEDS: Finasteride 5 MG Tablet PO (10:43)
[2021-03-26] MEDS: dexAMETHasone 4 MG Tablet 6 MG PO (10:43)
[2021-03-26] MEDS: APIXABAN 5 MG TABLET 10 MG PO ×2 (10:43→20:55)
[2021-03-26] MEDS: Pregabalin 50 MG Capsule 100 MG PO ×2 (10:55→20:55)
--- NOTE | 2021-03-26 11:38 | PN.HOSP_ITS ---
Subjective Subjective Continues to have intermittent abdominal pain and is short of breath requiring 4 L of oxygen Objective Data Objective Data Vital Signs: Vital Signs Temp Pulse Resp BP Pulse Ox 97.5 F L 75 18 161/63 H 83 03/26/21 10:55 03/26/21 10:55 03/26/21 10:55 03/26/21 10:55 03/26/21 10:55 Oxygen Flow Rate (L/min) 6 Oxygen Delivery Method Nasal Cannula Weight: 204 lb 12.951 oz Body Mass Index (BMI) 27.8 Intake & Output: Intake and Output for Last 24 Hours 03/25/21 03/26/21 03/27/21 03:59 03:59 03:59 Intake Total 2071.08 / 2071.08 Output Total 900 / 900 300 / 300 Balance 1171.08 / 1171.08 -300 / -300 Lab / Micro Data Result Diagrams: 03/26/21 06:18 03/26/21 06:18 Labs: Laboratory Results - last 24 hr 03/25/21 11:07: Lactic Acid 1.1 03/25/21 16:40: POC Glucose 128 H 03/25/21 19:45: APTT 61.7 H 03/25/21 21:35: POC Glucose 404 H 03/25/21 22:55: POC Glucose 356 H 03/26/21 06:18: WBC 10.2, RBC 4.06 L, Hgb 13.2, Hct 38.6 L, MCV 95.1 H, MCH 32.5 H, MCHC 34.2, RDW Std Deviation 42.5, RDW Coeff of Quin 12.1, Plt Count 291, MPV 10.3, Immature Gran % (Auto) 0.900, Neut % (Auto) 82.1 H, Lymph % (Auto) 9.6 L, [place] % (Auto) 7.3, Eos % (Auto) 0.0, Baso % (Auto) 0.1, Absolute Neuts (auto) 8.4 H, Absolute Lymphs (auto) 0.98, Nucleated RBC % 0 03/26/21 06:18: Sodium 136, Potassium 4.3, Chloride 104, Carbon Dioxide 26.0, Anion Gap 6, BUN 14, Creatinine 0.74, Estim Creat Clear Calc 70.06, Est GFR (MDRD) Af Amer 132, Est GFR (MDRD) Non-Af 109, BUN/Creatinine Ratio 18.8, Glucose 227 H, Calcium 7.8 L, Total Bilirubin 0.30, AST 22, ALT 19, Alkaline Phosphatase 63, Total Protein 6.0 L, Albumin 1.6 L, Globulin 4.4 H, Albumin/Globulin Ratio 0.4 L Micro: Microbiology 03/25/21 15:27 Urine, Random Legionella Antigen - Final 03/25/21 15:27 Urine, Random Streptococcus pneumoniae Antigen (M - Final 03/25/21 06:47 Nasal Secretion SARS-CoV-2 Antigen (Rapid) - Final Physical Exam Const alert, oriented x3 and no apparent distress General Appearance: cooperative HEENT normocephalic and moist oral mucous membranes Eyes PERRL, EOMs intact bilaterally and conjunctivae normal Neck supple and no JVD Resp normal respiratory effort, no retractions and no use of accessory muscles Auscultation: wheezes; Negative for crackles, rales or rhonchi Cardio regular rate, regular rhythm, S1 normal heart sound, S2 normal heart sound and no murmurs GI soft to palpation, non-tender and non-distended; Negative for hepatosplenomegaly Extremity no clubbing, cyanosis or edema Skin no rashes or lesions noted Neuro no focal motor deficits and no sensory deficits noted Psych affect normal Appearance: appropriate Assessment & Plan Assessment/Plan (1) Splenic infarct: (2) Pulmonary emboli: (3) Pneumonia due to COVID-19 virus: PLAN: 1. Acute hypoxic respiratory failure secondary to COVID-19 pneumonia and pulmonary embolism ?We will place him on Decadron given his oxygen requirements but he is almost 20 days out from symptom onset ?Continue with incentive spirometry and Pep ?Continue with Eliquis 10 mg p.o. twice daily for a week and transition to 5 mg p.o. twice daily on discharge after that ?We will have him follow-up with hematology on discharge ?He does have wheezing therefore will place him on duo nebs. He is a former smoker and states that he has an inhaler but he does not use it very frequently. He likely does have a history of COPD ?Strep urine antigen and Legionella antigen are negative 2. Splenic infarct ?We will discontinue with IV fluids ?This is likely related to his hypercoagulable state from Covid however would recommend outpatient follow-up with hematology in regards to the infarct as well as to the pulmonary embolisms 3. DM2 ?We will hold his home blood sugar medications ?Placed on sliding scale insulin with Accu-Cheks AC at bedtime ?We will adjust insulin dosing as necessary 4. Hyperlipidemia ?Continue with Lipitor 5. BPH ?Stable ?Continue with home medications DVT: Eliquis Charges/Coding Visit Charges Inpatient E&M: 33131 Subs Hosp L2
[2021-03-26] MEDS: Ipratropium/Albuterol Sulfate 3 ML AMPUL.NEB INHALATION ×2 (14:12→19:23)
--- NOTE | 2021-03-26 14:45 | CPS ---
pt was turned up to 15 lpm by nursing post ambulation. pt denies any S.O.B at time of aerosol and does state he feels better than previously
[2021-03-26 17:51] LABS: Bedside Glucose 351 mg/dL (70-110)
[2021-03-26] MEDS: Tamsulosin HCl 0.4 MG Capsule 0.8 MG PO (20:54)
[2021-03-26] MEDS: MELATONIN 3 MG TABLET PO (20:55)
[2021-03-26] MEDS: Atorvastatin Calcium 20 MG Tablet PO (20:55)
[2021-03-26 23:55] LABS: Bedside Glucose 408 mg/dL (70-110)
[2021-03-27] VITALS (18 sets, daily range): BP systolic 150–166; BP diastolic 63–78; PULSE 78–101; RESP 16–20; TEMP 36.7–37.1; O2SAT 89–96
[2021-03-27] MEDS: Morphine 4 MG/ML Syringe IV ×2 (03:03→09:55)
[2021-03-27] MEDS: 0.9% Saline Lock 10 ML Syringe IV (03:03)
[2021-03-27] MEDS: Insulin Lispro 100 UNIT/ML INSULN.PEN SC ×6 (06:46→21:14)
[2021-03-27 06:56] LABS: Bedside Glucose 215 mg/dL (70-110)
--- NOTE | 2021-03-27 07:22 | PCS.PANDOC ---
PANDEMIC DOCUMENTATION INITIATED: Date: 12/15/2020 Time: 190
[2021-03-27] MEDS: Ipratropium/Albuterol Sulfate 3 ML AMPUL.NEB INHALATION (07:25)
--- NOTE | 2021-03-27 09:08 | RAD_ITS ---
INDICATION: Increased O2 requirment EXAMINATION/TECHNIQUE: X-RAY - XR Chest 2 Views COMPARISON: CTA chest from 03/25/2021 FINDINGS: LINES/DEVICES: None. Multifocal multilobar confluent hazy groundglass opacities most prominent in the right upper lobe. No sizable pneumothorax or pleural effusion. Heart size is stable. Bones and soft tissues are unchanged. RAD/Chest PA and Lateral IMPRESSION: Findings similar to CTA chest from 03/25/2021 and suggestive of infectious/inflammatory etiology and can be seen in atypical pneumonia such as COVID pneumonia. Electronically Signed: Andres Hager MD at 9:43 EST Tel , Service support ,
[2021-03-27] MEDS: Furosemide 40 MG/4 ML Vial IV ×2 (09:46→16:08)
[2021-03-27] MEDS: APIXABAN 5 MG TABLET 10 MG PO ×2 (09:54→21:13)
[2021-03-27] MEDS: Finasteride 5 MG Tablet PO (09:54)
[2021-03-27] MEDS: dexAMETHasone 4 MG Tablet 6 MG PO (09:55)
[2021-03-27] MEDS: Pregabalin 50 MG Capsule 100 MG PO ×2 (09:55→21:13)
--- NOTE | 2021-03-27 10:28 | ECHOCS_ITS ---
Reason For Study: Emboli Procedure This was a 2D Doppler, Color Flow transthoracic echocardiogram. Very difficult study, all images taken from subcostal region. Contrast injection performed. Patient unable to lay on left side due to coughing fits from recent covid 19. Exam performed portable in patient room. Left Ventricle Normal left ventricle. The estimated ejection fraction is 55-60 %. Right Ventricle Normal right ventricle. Normal systolic function. Atria Normal left atrium. Normal right atrium. Mitral Valve The mitral valve is structurally normal. No prolapse or stenosis seen. Trivial mitral valve insufficiency. Tricuspid Valve Normal tricuspid valve. Mild tricuspid valve insufficiency. Aortic Valve Normal aortic valve. Pulmonic Valve The pulmonic valve is not well visualized. Great Vessels Not well visualized. Pericardium/Pleural No pericardial effusion. Medication Diluted definity 3ml given slow IV push to enhance endocardial definition. MMode/2D Measurements & Calculations LVIDd: 4.7 cm IVSd: 1.4 cm LVIDs: 3.0 cm LVPWd: 1.3 cm FS: 35.9 % Time Measurements MV dec time: 0.24 sec Doppler Measurements & Calculations MV E max greg: 53.3 cm/sec Lat Peak E' Greg: 6.3 cm/sec MV V2 max: 84.1 cm/sec MV A max greg: 68.5 cm/sec E/E' lat: 8.4 MV max P.8 mmHg MV E/A: 0.78 MV V2 mean: 49.9 cm/sec MV mean P.2 mmHg MV V2 VTI: 22.7 cm MV P1/2t max greg: 78.9 cm/sec Ao V2 max: 141.2 cm/sec LV V1 max: 111.9 cm/sec MV P1/2t: 24.6 msec Ao max P.0 mmHg LV V1 max P.0 mmHg MV dec slope: 939.6 cm/sec2 MVA(P1/2t): 8.9 cm2 PA V2 max: 126.2 cm/sec ECHO/Echo Complete W/ Contrast Interpretation Summary The estimated ejection fraction is 55-60 %. Not well visualized Overall Normal LV systolic function No prior echo to compare Ordering Physician: Bacilio Yuan Referring Physician: [facility] Performed By: Abebe Gonzalez RCS
--- NOTE | 2021-03-27 10:29 | PCM.PN.HOSP ---
Subjective Subjective He has had an increased oxygen requirement since yesterday afternoon we will obtain a chest x-ray for further clarification. Objective Data Objective Data Vital Signs: Vital Signs Temp Pulse Resp BP Pulse Ox 98.0 F 96 18 152/63 H 91 03/27/21 09:44 03/27/21 09:44 03/27/21 09:44 03/27/21 09:44 03/27/21 10:17 Oxygen Flow Rate (L/min) 11 Oxygen Delivery Method Nasal Cannula Weight: 204 lb 12.951 oz Body Mass Index (BMI) 27.8 Intake & Output: Intake and Output for Last 24 Hours 03/26/21 03/27/21 03/28/21 03:59 03:59 03:59 Intake Total 2071.08 / 2071.08 2100 / 2100 120 / 120 Output Total 900 / 900 300 / 300 Balance 1171.08 / 1171.08 1800 / 1800 120 / 120 Lab / Micro Data Result Diagrams: 03/26/21 06:18 03/26/21 06:18 Labs: Laboratory Results - last 24 hr 03/26/21 17:38: POC Glucose 351 H 03/26/21 21:01: POC Glucose 408 H 03/27/21 06:45: POC Glucose 215 H Micro: Microbiology 03/25/21 15:27 Urine, Random Legionella Antigen - Final 03/25/21 15:27 Urine, Random Streptococcus pneumoniae Antigen (M - Final 03/25/21 06:47 Nasal Secretion SARS-CoV-2 Antigen (Rapid) - Final Radiography Diagnostic Testing: Radiology Impression Chest X-Ray 03/27/21 09:08 IMPRESSION: Findings similar to CTA chest from 03/25/2021 and suggestive of infectious/inflammatory etiology and can be seen in atypical pneumonia such as COVID pneumonia. Electronically Signed: Andres Hager MD at 9:43 EST Tel , Service support , Physical Exam Const alert, oriented x3 and no apparent distress General Appearance: cooperative HEENT normocephalic and moist oral mucous membranes Eyes PERRL, EOMs intact bilaterally and conjunctivae normal Neck supple and no JVD Resp normal respiratory effort, no retractions and no use of accessory muscles Auscultation: crackles and wheezes; Negative for rales or rhonchi Cardio regular rate, regular rhythm, S1 normal heart sound, S2 normal heart sound and no murmurs GI soft to palpation, non-tender and non-distended; Negative for hepatosplenomegaly Extremity no clubbing, cyanosis or edema Skin no rashes or lesions noted Neuro no focal motor deficits and no sensory deficits noted Psych affect normal Appearance: appropriate Assessment & Plan Assessment/Plan (1) Splenic infarct: (2) Pulmonary emboli: (3) Pneumonia due to COVID-19 virus: PLAN: 1. Acute hypoxic respiratory failure secondary to COVID-19 pneumonia and pulmonary embolism ?We will place him on Decadron given his oxygen requirements, symptom onset was on 03/07/2021 ?Continue with incentive spirometry and Pep ?Continue with Eliquis 10 mg p.o. twice daily for a week and transition to 5 mg p.o. twice daily on discharge after that ?We will have him follow-up with hematology on discharge ?He does have wheezing therefore will place him on duo nebs. He is a former smoker and states that he has an inhaler but he does not use it very frequently. He likely does have a history of COPD ?With the increase in his oxygen requirements, he does now have crackles on exam therefore we will give him a dose of Lasix and send him for a chest x-ray. Also plan for an echo secondary to his PEs and now with the crackles to rule out any significant right heart strain and pulmonary edema ?Strep urine antigen and Legionella antigen are negative 2. Splenic infarct ?We will discontinue with IV fluids ?This is likely related to his hypercoagulable state from Covid however would recommend outpatient follow-up with hematology in regards to the infarct as well as to the pulmonary embolisms 3. DM2 ?We will hold his home blood sugar medications ?Placed on sliding scale insulin with Accu-Cheks AC at bedtime ?We will adjust insulin dosing as necessary 4. Hyperlipidemia ?Continue with Lipitor 5. BPH ?Stable ?Continue with home medications DVT: Eliquis Charges/Coding Visit Charges Inpatient E&M: 28123 Subs Hosp L2
[2021-03-27 12:41] LABS: Bedside Glucose 211 mg/dL (70-110)
[2021-03-27 14:45] LABS: Bedside Glucose 238 mg/dL (70-110)
[2021-03-27 16:35] LABS: Bedside Glucose 281 mg/dL (70-110)
[2021-03-27] MEDS: Atorvastatin Calcium 20 MG Tablet PO (21:13)
[2021-03-27 21:30] LABS: Bedside Glucose 384 mg/dL (70-110)
[2021-03-28] VITALS (15 sets, daily range): BP systolic 124–161; BP diastolic 59–82; PULSE 76–107; RESP 18–20; TEMP 36.4–36.9; O2SAT 88–93
[2021-03-28] MEDS: Morphine 4 MG/ML Syringe IV ×3 (00:04→11:51)
[2021-03-28] MEDS: 0.9% Saline Lock 10 ML Syringe IV ×3 (00:05→11:51)
[2021-03-28] MEDS: Ipratropium/Albuterol Sulfate 3 ML AMPUL.NEB INHALATION ×3 (07:25→20:44)
[2021-03-28] MEDS: Insulin Lispro 100 UNIT/ML INSULN.PEN SC ×6 (07:44→16:15)
[2021-03-28 07:45] LABS: Bedside Glucose 170 mg/dL (70-110)
[2021-03-28 08:16] LABS: Absolute Lymphocyte Count 2.85 X10^3/uL (0.83-4.51); Basophil# 0.02 X10^3/uL; Basophil% 0.2 % (0-1); Eosinophil# 0.02 X10^3/uL; Eosinophils% 0.2 % (0-5); Hematocrit 45.4 % (40-54); Hemoglobin 15.4 g/dL (13.0-16.5); Lymphocyte # 2.85 X10^3/ul (0.83-4.51); Lymphocyte % 21.5 % (19-41); Mean Corp Hgb Conc 33.9 g/dL (32-36); Mean Corpuscular Volume 94.4 fL (80-94); Mean Platelet Vol. 10.3 fl (6.2-12.0); Monocyte# 1.16 X10^3/uL; Monocyte% 8.7 % (0-10); NRBC Flagged by Analyzer 0 % (0-5); Neutrophil % 67.7 % (47-70); Platelet Count 314 K/mm3 (150-450); RBC Distribution Width CV 12.2 % (11.6-14.6); RBC Distribution Width SD 42.5 fl (35.1-43.9); Red Blood Count 4.81 M/mm3 (4.6-6.2); White Blood Count 13.3 K/mm3 (4.4-11.0)
[2021-03-28 08:45] LABS: Anion Gap 8 (5-15); BUN 16 mg/dL (7-18); BUN/Creat Ratio 17.1 RATIO (10-20); Calcium,Total 8.7 mg/dL (8.5-10.1); Chloride 101 mmol/L (98-107); Creatinine, Serum 0.94 mg/dL (0.70-1.30); EST Glomerular Filtration Rate 83 mL/min (>60); Est Glom Filt Rate - Afr Amer 101 mL/min (>60); Estimated Creatinine Clearance 74.53 ml/min; Glucose 189 mg/dL (74-106); Potassium 3.3 mmol/L (3.5-5.1); Sodium Level 137 mmol/L (136-145)
[2021-03-28] MEDS: Finasteride 5 MG Tablet PO (09:29)
[2021-03-28] MEDS: dexAMETHasone 4 MG Tablet 6 MG PO (09:30)
[2021-03-28] MEDS: Pregabalin 50 MG Capsule 100 MG PO ×2 (09:30→21:51)
[2021-03-28] MEDS: APIXABAN 5 MG TABLET 10 MG PO ×2 (09:30→21:51)
--- NOTE | 2021-03-28 09:57 | PN.HOSP_ITS ---
Subjective Subjective States that the Lasix worked great yesterday but is now feeling a little more short of breath again back up to 10 L. Objective Data Objective Data Vital Signs: Vital Signs Temp Pulse Resp BP Pulse Ox 97.5 F L 106 H 18 124/59 H 92 03/28/21 09:21 03/28/21 09:21 03/28/21 09:21 03/28/21 09:21 03/28/21 09:21 Oxygen Flow Rate (L/min) 10 Oxygen Delivery Method High Flow Weight: 204 lb 12.951 oz Body Mass Index (BMI) 27.8 Intake & Output: Intake and Output for Last 24 Hours 03/27/21 03/28/21 03/29/21 03:59 03:59 03:59 Intake Total 2100 / 2100 600 / 600 120 / 120 Output Total 300 / 300 5300 / 5300 200 / 200 Balance 1800 / 1800 -4700 / -4700 -80 / -80 Lab / Micro Data Result Diagrams: 03/28/21 07:53 03/28/21 07:53 Labs: Laboratory Results - last 24 hr 03/27/21 12:28: POC Glucose 211 H 03/27/21 14:29: POC Glucose 238 H 03/27/21 16:04: POC Glucose 281 H 03/27/21 21:11: POC Glucose 384 H 03/28/21 07:30: POC Glucose 170 H 03/28/21 07:53: WBC 13.3 H, RBC 4.81, Hgb 15.4, Hct 45.4, MCV 94.4 H, MCH 32.0, MCHC 33.9, RDW Std Deviation 42.5, RDW Coeff of Quin 12.2, Plt Count 314, MPV 10.3, Immature Gran % (Auto) 1.700 H, Neut % (Auto) 67.7, Lymph % (Auto) 21.5, Harper % (Auto) 8.7, Eos % (Auto) 0.2, Baso % (Auto) 0.2, Absolute Neuts (auto) 9.0 H, Absolute Lymphs (auto) 2.85, Nucleated RBC % 0 03/28/21 07:53: Sodium 137, Potassium 3.3 L, Chloride 101, Carbon Dioxide 28.0, Anion Gap 8, BUN 16, Creatinine 0.94, Estim Creat Clear Calc 74.53, Est GFR (MDRD) Af Amer 101, Est GFR (MDRD) Non-Af 83, BUN/Creatinine Ratio 17.1, Glucose 189 H, Calcium 8.7 Micro: Microbiology 03/25/21 15:27 Urine, Random Legionella Antigen - Final 03/25/21 15:27 Urine, Random Streptococcus pneumoniae Antigen (M - Final 03/25/21 06:47 Nasal Secretion SARS-CoV-2 Antigen (Rapid) - Final Radiography Diagnostic Testing: Radiology Impression Echocardiogram 03/27/21 10:28 Interpretation Summary The estimated ejection fraction is 55-60 %. Not well visualized Overall Normal LV systolic function No prior echo to compare Ordering Physician: Bacilio Yuan Referring Physician: [facility] Performed By: Abebe Gonzalez RCS Physical Exam Const alert, oriented x3 and no apparent distress General Appearance: cooperative HEENT normocephalic and moist oral mucous membranes Eyes PERRL, EOMs intact bilaterally and conjunctivae normal Neck supple and no JVD Resp normal respiratory effort, no retractions and no use of accessory muscles Auscultation: crackles and wheezes; Negative for rales or rhonchi Cardio regular rate, regular rhythm, S1 normal heart sound, S2 normal heart sound and no murmurs GI soft to palpation, non-tender and non-distended; Negative for hepatosplenomegaly Extremity no clubbing, cyanosis or edema Skin no rashes or lesions noted Neuro no focal motor deficits and no sensory deficits noted Psych affect normal Appearance: appropriate Assessment & Plan Assessment/Plan (1) Splenic infarct: (2) Pulmonary emboli: (3) Pneumonia due to COVID-19 virus: PLAN: 1. Acute hypoxic respiratory failure secondary to COVID-19 pneumonia and pulmonary embolism ?We will place him on Decadron given his oxygen requirements, symptom onset was on 03/07/2021 ?Continue with incentive spirometry and Pep ?Continue with Eliquis 10 mg p.o. twice daily for a week and transition to 5 mg p.o. twice daily on discharge after that ?We will have him follow-up with hematology on discharge ?He does have wheezing therefore will place him on duo nebs. He is a former smoker and states that he has an inhaler but he does not use it very frequently. He likely does have a history of COPD ?Echo was unremarkable for any heart failure EF was normal with no diastolic dysfunction. No read on pulmonary pressures. He has had significant improvement with his Lasix yesterday therefore we will proceed with Lasix today given stable renal function ?Strep urine antigen and Legionella antigen are negative 2. Splenic infarct ?We will discontinue with IV fluids ?This is likely related to his hypercoagulable state from Covid however would recommend outpatient follow-up with hematology in regards to the infarct as well as to the pulmonary embolisms 3. DM2 ?We will hold his home blood sugar medications ?Placed on sliding scale insulin with Accu-Cheks AC at bedtime ?We will adjust insulin dosing as necessary 4. Hyperlipidemia ?Continue with Lipitor 5. BPH ?Stable ?Continue with home medications DVT: Eliquhoracio Charges/Coding Visit Charges Inpatient E&M: 82048 Subs Hosp L2
[2021-03-28] MEDS: Sodium Chloride 0.65% 1 SPRAY SPRAY.BTL 2 SPRAY NASAL ×2 (11:07→20:18)
[2021-03-28] MEDS: Loratadine 10 MG Tablet PO (11:08)
[2021-03-28] MEDS: Furosemide 40 MG/4 ML Vial IV ×2 (11:08→17:47)
[2021-03-28] MEDS: Potassium Chloride Oral Tablet 20 MEQ 40 MEQ PO (11:08)
--- NOTE | 2021-03-28 11:14 | EKG12_ITS ---
Test Reason : CP Blood Pressure : / mmHG Vent. Rate : 103 BPM Atrial Rate : 103 BPM P-R Int : 126 ms QRS Dur : 076 ms QT Int : 346 ms P-R-T Axes : 042 -20 004 degrees QTc Int : 453 ms Sinus tachycardia Inferior infarct (cited on or before 25-MAR-2021) Abnormal ECG When compared with ECG of 25-MAR-2021 06:55, No significant change was found Confirmed by KENDALL PAIGE, ROBINA ([id number]), news videotape editor TELLY LAMB ([id number]) on 03/31/2021 9:25:23 AM Referred By: ARMEN Confirmed By:ROBINA ARGUETA MD
[2021-03-28 12:11] LABS: Bedside Glucose 292 mg/dL (70-110)
[2021-03-28 16:50] LABS: Bedside Glucose 390 mg/dL (70-110)
[2021-03-28 21:45] LABS: Bedside Glucose > 500 mg/dL (70-110)
[2021-03-28] MEDS: Atorvastatin Calcium 20 MG Tablet PO (21:51)
[2021-03-28] MEDS: Insulin Lispro 100 UNIT/ML INSULN.PEN 14 UNIT SC (21:51)
[2021-03-29] VITALS (20 sets, daily range): BP systolic 107–148; BP diastolic 63–110; PULSE 83–117; RESP 11–24; TEMP 36.3–36.7; O2SAT 90–96
[2021-03-29 01:05] LABS: Bedside Glucose 330 mg/dL (70-110)
[2021-03-29] MEDS: Sodium Chloride 0.65% 1 SPRAY SPRAY.BTL 2 SPRAY NASAL ×2 (02:10→07:30)
[2021-03-29 06:48] LABS: Absolute Lymphocyte Count 1.82 X10^3/uL (0.83-4.51); Absolute Neutrophil Count 9.1 X10^3/uL (2.0-7.7); Basophil# 0.03 X10^3/uL; Basophil% 0.2 % (0-1); Eosinophil# 0.04 X10^3/uL; Eosinophils% 0.3 % (0-5); Hematocrit 43.4 % (40-54); Hemoglobin 14.9 g/dL (13.0-16.5); Lymphocyte # 1.82 X10^3/ul (0.83-4.51); Lymphocyte % 14.9 % (19-41); Mean Corp Hgb Conc 34.3 g/dL (32-36); Mean Corpuscular Hgb 32.1 pg (27.0-32.0); Mean Corpuscular Volume 93.5 fL (80-94); Mean Platelet Vol. 10.2 fl (6.2-12.0); Monocyte# 1.03 X10^3/uL; Monocyte% 8.4 % (0-10); NRBC Flagged by Analyzer 0 % (0-5); Neutrophil # 9.05 X10^3/uL (2.7-7.7); Neutrophil % 74.2 % (47-70); Platelet Count 318 K/mm3 (150-450); RBC Distribution Width CV 12.2 % (11.6-14.6); RBC Distribution Width SD 41.9 fl (35.1-43.9); Red Blood Count 4.64 M/mm3 (4.6-6.2); White Blood Count 12.2 K/mm3 (4.4-11.0)
[2021-03-29 07:06] LABS: Anion Gap 9 (5-15); BUN 24 mg/dL (7-18); BUN/Creat Ratio 26.2 RATIO (10-20); Calcium,Total 8.6 mg/dL (8.5-10.1); Chloride 100 mmol/L (98-107); Creatinine, Serum 0.92 mg/dL (0.70-1.30); EST Glomerular Filtration Rate 86 mL/min (>60); Est Glom Filt Rate - Afr Amer 104 mL/min (>60); Estimated Creatinine Clearance 76.15 ml/min; Glucose 195 mg/dL (74-106); Potassium 3.7 mmol/L (3.5-5.1); Sodium Level 137 mmol/L (136-145)
[2021-03-29] MEDS: Morphine 4 MG/ML Syringe IV (07:06)
[2021-03-29] MEDS: Furosemide 40 MG/4 ML Vial IV (07:30)
[2021-03-29] MEDS: Insulin Lispro 100 UNIT/ML INSULN.PEN SC ×4 (07:31→21:57)
[2021-03-29] MEDS: Ipratropium/Albuterol Sulfate 3 ML AMPUL.NEB INHALATION ×4 (08:27→19:49)
[2021-03-29 09:00] LABS: Bedside Glucose 174 mg/dL (70-110)
[2021-03-29] MEDS: Pregabalin 50 MG Capsule 100 MG PO ×2 (09:40→22:04)
[2021-03-29] MEDS: dexAMETHasone 4 MG Tablet 6 MG PO (09:42)
[2021-03-29] MEDS: Loratadine 10 MG Tablet PO (09:42)
[2021-03-29] MEDS: Finasteride 5 MG Tablet PO (09:42)
[2021-03-29] MEDS: APIXABAN 5 MG TABLET 10 MG PO ×2 (09:42→21:53)
[2021-03-29] MEDS: Insulin Lispro 100 UNIT/ML INSULN.PEN 10 UNIT SC ×2 (10:59→15:59)
--- NOTE | 2021-03-29 11:04 | PN.HOSP_ITS ---
Subjective Subjective Has had continued worsening in his respiratory status he is maintained on 10 L nasal cannula. He did not have the improvement in his respiratory status that he did the other day with Lasix therefore we will consult pulmonology. Objective Data Objective Data Vital Signs: Vital Signs Temp Pulse Resp BP Pulse Ox 97.7 F L 117 H 18 144/76 H 92 03/29/21 11:02 03/29/21 11:02 03/29/21 11:02 03/29/21 11:02 03/29/21 11:02 Oxygen Flow Rate (L/min) 15 Oxygen Delivery Method High Flow Weight: 204 lb 12.951 oz Body Mass Index (BMI) 27.8 Intake & Output: Intake and Output for Last 24 Hours 03/28/21 03/29/21 03/30/21 03:59 03:59 03:59 Intake Total 600 / 600 1260 / 1260 280 / 280 Output Total 5300 / 5300 3452 / 3452 700 / 700 Balance -4700 / -4700 -2192 / -2192 -420 / -420 Lab / Micro Data Result Diagrams: 03/29/21 06:28 03/29/21 06:28 Labs: Laboratory Results - last 24 hr 03/28/21 11:49: POC Glucose 292 H 03/28/21 16:13: POC Glucose 390 H 03/28/21 21:28: POC Glucose > 500 H* 03/29/21 00:41: POC Glucose 330 H 03/29/21 06:28: WBC 12.2 H, RBC 4.64, Hgb 14.9, Hct 43.4, MCV 93.5, MCH 32.1 H, MCHC 34.3, RDW Std Deviation 41.9, RDW Coeff of Quin 12.2, Plt Count 318, MPV 10. 2, Immature Gran % (Auto) 2.000 H, Neut % (Auto) 74.2 H, Lymph % (Auto) 14.9 L, Murray % (Auto) 8.4, Eos % (Auto) 0.3, Baso % (Auto) 0.2, Absolute Neuts (auto) 9.1 H, Absolute Lymphs (auto) 1.82, Nucleated RBC % 0 03/29/21 06:28: Sodium 137, Potassium 3.7, Chloride 100, Carbon Dioxide 28.0, Anion Gap 9, BUN 24 H, Creatinine 0.92, Estim Creat Clear Calc 76.15, Est GFR (MDRD) Af Amer 104, Est GFR (MDRD) Non-Af 86, BUN/Creatinine Ratio 26.2 H, Glucose 195 H, Calcium 8.6 03/29/21 07:25: POC Glucose 174 H Micro: Microbiology 03/25/21 15:27 Urine, Random Legionella Antigen - Final 03/25/21 15:27 Urine, Random Streptococcus pneumoniae Antigen (M - Final 03/25/21 06:47 Nasal Secretion SARS-CoV-2 Antigen (Rapid) - Final Physical Exam Const alert, oriented x3 and no apparent distress General Appearance: cooperative HEENT normocephalic and moist oral mucous membranes Eyes PERRL, EOMs intact bilaterally and conjunctivae normal Neck supple and no JVD Resp normal respiratory effort, no retractions and no use of accessory muscles Auscultation: crackles and diminished lung sounds; Negative for rales, rhonchi or wheezes Cardio regular rate, regular rhythm, S1 normal heart sound, S2 normal heart sound and no murmurs GI soft to palpation, non-tender and non-distended; Negative for hepatosplenomegaly Extremity no clubbing, cyanosis or edema Skin no rashes or lesions noted Neuro no focal motor deficits and no sensory deficits noted Psych affect normal Appearance: appropriate Assessment & Plan Assessment/Plan (1) Splenic infarct: (2) Pulmonary emboli: (3) Pneumonia due to COVID-19 virus: PLAN: 1. Acute hypoxic respiratory failure secondary to COVID-19 pneumonia and pu lmonary embolism ?We will place him on Decadron given his oxygen requirements, symptom onset was on 03/07/2021 ?Continue with incentive spirometry and Pep ?Continue with Eliquis 10 mg p.o. twice daily for a week and transition to 5 mg p.o. twice daily on discharge after that ?We will have him follow-up with hematology on discharge ?He does have wheezing therefore will place him on duo nebs. He is a former smoker and states that he has an inhaler but he does not use it very frequently. He likely does have a history of COPD ?Echo was unremarkable for any heart failure EF was normal with no diastolic dysfunction. No read on pulmonary pressures. He has had significant improvement with his Lasix yesterday therefore we will proceed with Lasix today given stable renal function ?Strep urine antigen and Legionella antigen are negative ?Given his continued high oxygen requirements, will consult pulmonology for assistance 2. Splenic infarct ?We will discontinue with IV fluids ?This is likely related to his hypercoagulable state from Covid however would recommend outpatient follow-up with hematology in regards to the infarct as well as to the pulmonary embolisms 3. DM2 ?We will hold his home blood sugar medications ?Placed on sliding scale insulin with Accu-Cheks AC at bedtime ?We will adjust insulin dosing as necessary 4. Hyperlipidemia ?Continue with Lipitor 5. BPH ?Stable ?Continue with home medications DVT: Eliquis Charges/Coding Visit Charges Inpatient E&M: 20657 Subs Hosp L2
[2021-03-29 11:21] LABS: Bedside Glucose 275 mg/dL (70-110)
--- NOTE | 2021-03-29 11:29 | EX.PCM.CONCC ---
Assessment & Plan Assessment/Plan (1) Pneumonia due to COVID-19 virus: (2) Pulmonary emboli: (3) Splenic infarct: PLAN: RECOMMENDATIONS: 1. Continue full anticoagulation 2. Aggressive nasal rinses to deal with nasal obstruction 3. Potentially transition to Airvo for heated humidification 4. Wean oxygen as tolerated 5. Hold on steroids at this time 6. Continue bronchodilators 7. Walking oximetry prior to discharge 8. Outpatient pulmonary follow-up for PFT and repeat CT to document resolution of GGO IMPRESSIONS: 1. Acute hypoxic respiratory failure secondary to Covid pneumonia with secondary PE and splenic infarct Patient does not have a history of a hypercoagulable state. Clinical suspicion for COVID-19 associated hypercoagulable state. Patient should be on anticoagulation for least 3 to 6 months. Intermittent response to diuretics likely secondary to improved pulmonary hypertension. Repeat hypoxia may be secondary to nasal congestion. Recommend nasal rinses. May benefit to transition to Airvo versus mask oxygenation with Ventimask. Wean oxygen as tolerated. Would hold on steroids at this time. Continue full anticoagulation. Patient likely does not require a follow-up echocardiogram. Judicious use of IV fluids given recent Covid 2. Diabetes mellitus type 2/hyperlipidemia/BPH/history of smoking Complicates care, management, recovery and prognosis. We will have to watch blood sugars closely, especially if steroids initiated. Outpatient work-up for COPD would be recommended. Patient will need a walking oximetry prior to discharge. HPI Consult Data Date of Consult: 03/29/21 HPI Narrative HPI Narrative: PACO KUMAR is a 75 M, with past medical history listed below, who presented to [facility] on 03/25/2021 secondary to left lower quadrant pain, nausea and dry heaves. Patient reportedly started with Covid symptoms on the sixth of this month and tested positive on the 10th. Patient reportedly had significant cough, but no chest pain or hemoptysis. No leg swelling was noted. Patient does suffer from diabetes and diabetic neuropathy at baseline. Patient does have a smoking history, but quit many years ago. Patient is not currently on any inhalers. In the ER, patient was afebrile, but tachycardic at 115 bpm. Patient was also hypertensive at 172/90 and requiring 4 L nasal cannula to maintain saturations. Laboratory work-up was relatively unremarkable except for an elevated lactate of 2.3 and urinary glucose of 1000. CTA of the chest showed subsegmental pulmonary emboli with bilateral groundglass opacities and a moderate sized splenic infarct. Patient was placed on a heparin drip and admitted to the floor for further evaluation. Since being on the floor, patient has been on full anticoagulation. Patient did have worsening in his oxygen saturation up to 10 L, but responded to diuretics. Patient once again worsened, so a pulmonary consult was obtained. Patient overall feels subjectively frustrated that he cannot move around more. Patient does report the onset of nasal congestion over the last 24 to 48 hours. Patient is not reporting any hemoptysis, but has been putting his nasal cannula in his mouth to help with oxygenation. Patient is unaware of any pulmonary pathology at baseline. Patient does have a smoking history, but has not seen a construction inspector or had a PFT that he is aware of. Patient does not use any inhalers at baseline. Patient has had an echocardiogram showing preserved ejection fraction during this hospitalization. Patient did have difficulty in obtaining pulmonary artery pressures. Review of systems otherwise negative from a constitutional, HEENT, respiratory, cardiovascular, GI, genitourinary, musculoskeletal, skin, neurologic, psychiatric and hematologic system unless stated above. [facility] Medical History Benign prostatic hyperplasia Diabetes mellitus, type 2 Hyperlipidemia Medical History no medical history Home Medications atorvastatin 20 mg PO QHS 03/25/21 [History Last Taken Unknown] calcium polycarbophil 625 mg PO DAILY 03/25/21 [History Last Taken Unknown] camphor-menthol 1 applic TOPICAL 5X/DAY PRN 03/25/21 [History Last Taken Unknown] cetirizine 10 mg PO DAILY 03/25/21 [History Last Taken Unknown] cholecalciferol (vitamin D3) 50 mcg PO DAILY 03/25/21 [History Last Taken Unknown] colestipol 1 g PO BID 03/25/21 [History Last Taken Unknown] cyanocobalamin (vitamin B-12) 1,000 mcg PO DAILY 03/25/21 [History Last Taken Unknown] cyclosporine 1 drp EACH EYE Q12H 03/25/21 [History Last Taken Unknown] diclofenac sodium 2 g TOPICAL BID 03/25/21 [History Last Taken Unknown] empagliflozin 12.5 mg PO DAILY 03/25/21 [History Last Taken Unknown] finasteride 5 mg PO DAILY 03/25/21 [History Last Taken Unknown] fluticasone propionate 2 spray INTRANASAL DAILY 03/25/21 [History Last Taken Unknown] hydrocortisone 1 applic TOPICAL BID PRN 03/25/21 [History Last Taken Unknown] ketoconazole 1 applic TOPICAL DAILY 03/25/21 [History Last Taken Unknown] pregabalin 100 mg PO BID 03/25/21 [History Last Taken Unknown] tamsulosin 0.8 mg PO QHS 03/25/21 [History Last Taken Unknown] vardenafil 20 mg PO DAILY PRN 03/25/21 [History Last Taken Unknown] vit C-vit [id number] [Ocuvite] 1 cap PO BID 03/25/21 [History Last Taken Unknown] Allergy/AdvReac Type Severity Reaction Status Date / Time Penicillins [PCN] Allergy Shortness Verified 03/25/21 06:20 of breath Family History Other Cancer Surgical History no surgical history Social History Smoking Status: Former smoker ROS ROS Narrative See HPI Physical Exam Const alert, oriented x3 and no apparent distress General Appearance: cooperative HEENT normocephalic and moist oral mucous membranes HEENT Narrative: Bilateral obstructed nares Eyes PERRL, EOMs intact bilaterally and conjunctivae normal Neck supple and no JVD Resp normal respiratory effort, no retractions and no use of accessory muscles Auscultation: crackles and diminished lung sounds; Negative for rales, rhonchi or wheezes Cardio regular rate, regular rhythm, S1 normal heart sound, S2 normal heart sound and no murmurs GI soft to palpation and non-distended GI Narrative: Mild tenderness to palpation in the left upper quadrant Extremity no clubbing, cyanosis or edema Skin no rashes or lesions noted Neuro no focal motor deficits and no sensory deficits noted Psych affect normal Appearance: appropriate Lab / Micro Data Result Diagrams: 03/29/21 06:28 03/29/21 06:28 Labs: Laboratory Results - last 24 hr 03/28/21 11:49: POC Glucose 292 H 03/28/21 16:13: POC Glucose 390 H 03/28/21 21:28: POC Glucose > 500 H* 03/29/21 00:41: POC Glucose 330 H 03/29/21 06:28: WBC 12.2 H, RBC 4.64, Hgb 14.9, Hct 43.4, MCV 93.5, MCH 32.1 H, MCHC 34.3, RDW Std Deviation 41.9, RDW Coeff of Quin 12.2, Plt Count 318, MPV 10.2, Immature Gran % (Auto) 2.000 H, Neut % (Auto) 74.2 H, Lymph % (Auto) 14.9 L, Gall[place] % (Auto) 8.4, Eos % (Auto) 0.3, Baso % (Auto) 0.2, Absolute Neuts (auto) 9.1 H, Absolute Lymphs (auto) 1.82, Nucleated RBC % 0 03/29/21 06:28: Sodium 137, Potassium 3.7, Chloride 100, Carbon Dioxide 28.0, Anion Gap 9, BUN 24 H, Creatinine 0.92, Estim Creat Clear Calc 76.15, Est GFR (MDRD) Af Amer 104, Est GFR (MDRD) Non-Af 86, BUN/Creatinine Ratio 26.2 H, Glucose 195 H, Calcium 8.6 03/29/21 07:25: POC Glucose 174 H 03/29/21 10:58: POC Glucose 275 H Charges/Coding Visit Charges Inpatient E&M: 47620 Init Hosp L3
[2021-03-29 16:06] LABS: Bedside Glucose 492 mg/dL (70-110)
[2021-03-29 18:11] LABS: Bedside Glucose 418 mg/dL (70-110)
[2021-03-29] MEDS: Atorvastatin Calcium 20 MG Tablet PO (21:53)
[2021-03-29 22:16] LABS: Bedside Glucose 416 mg/dL (70-110)
[2021-03-30] VITALS (12 sets, daily range): BP systolic 110–138; BP diastolic 63–69; PULSE 73–101; RESP 17–20; TEMP 36.5–36.6; O2SAT 91–96
[2021-03-30 07:01] LABS: Absolute Lymphocyte Count 2.09 X10^3/uL (0.83-4.51); Absolute Neutrophil Count 12.4 X10^3/uL (2.0-7.7); Basophil# 0.03 X10^3/uL; Basophil% 0.2 % (0-1); Eosinophil# 0.08 X10^3/uL; Eosinophils% 0.5 % (0-5); Hematocrit 42.5 % (40-54); Hemoglobin 14.7 g/dL (13.0-16.5); Lymphocyte # 2.09 X10^3/ul (0.83-4.51); Lymphocyte % 13.2 % (19-41); Mean Corp Hgb Conc 34.6 g/dL (32-36); Mean Corpuscular Hgb 32.6 pg (27.0-32.0); Mean Corpuscular Volume 94.2 fL (80-94); Mean Platelet Vol. 10.6 fl (6.2-12.0); Monocyte# 0.99 X10^3/uL; Monocyte% 6.2 % (0-10); NRBC Flagged by Analyzer 0 % (0-5); Neutrophil % 78.2 % (47-70); Platelet Count 349 K/mm3 (150-450); RBC Distribution Width CV 12.2 % (11.6-14.6); RBC Distribution Width SD 42.4 fl (35.1-43.9); Red Blood Count 4.51 M/mm3 (4.6-6.2); White Blood Count 15.9 K/mm3 (4.4-11.0)
[2021-03-30] MEDS: Ipratropium/Albuterol Sulfate 3 ML AMPUL.NEB INHALATION ×3 (07:19→20:33)
[2021-03-30 07:26] LABS: Anion Gap 7 (5-15); BUN 27 mg/dL (7-18); BUN/Creat Ratio 30.7 RATIO (10-20); Calcium,Total 8.8 mg/dL (8.5-10.1); Chloride 101 mmol/L (98-107); Creatinine, Serum 0.88 mg/dL (0.70-1.30); EST Glomerular Filtration Rate 90 mL/min (>60); Est Glom Filt Rate - Afr Amer 109 mL/min (>60); Estimated Creatinine Clearance 79.61 ml/min; Glucose 185 mg/dL (74-106); Potassium 4.2 mmol/L (3.5-5.1); Sodium Level 135 mmol/L (136-145)
[2021-03-30] MEDS: dexAMETHasone 4 MG Tablet 6 MG PO (08:28)
[2021-03-30] MEDS: Pregabalin 50 MG Capsule 100 MG PO ×2 (08:28→21:13)
[2021-03-30] MEDS: Loratadine 10 MG Tablet PO (08:29)
[2021-03-30] MEDS: APIXABAN 5 MG TABLET 10 MG PO ×2 (08:30→21:02)
[2021-03-30] MEDS: Finasteride 5 MG Tablet PO (08:30)
[2021-03-30] MEDS: Insulin Lispro 100 UNIT/ML INSULN.PEN SC ×4 (08:32→21:05)
[2021-03-30] MEDS: Insulin Lispro 100 UNIT/ML INSULN.PEN 10 UNIT SC ×3 (08:32→16:51)
--- NOTE | 2021-03-30 08:34 | PCM.PN.INT ---
Assessment & Plan Assessment/Plan (1) Pneumonia due to COVID-19 virus: (2) Pulmonary emboli: (3) Splenic infarct: PLAN: RECOMMENDATIONS: 1. Continue full anticoagulation 2. Aggressive nasal rinses to deal with nasal obstruction 3. Obtain sputum culture 4. Wean oxygen as tolerated 5. Discontinue Decadron after 10 days (04/03/2021) 6. Continue bronchodilators 7. Walking oximetry prior to discharge 8. Outpatient pulmonary follow-up for PFT and repeat CT to document resolution of GGO IMPRESSIONS: 1. Acute hypoxic respiratory failure secondary to Covid pneumonia with secondary PE and splenic infarct Patient does not have a history of a hypercoagulable state. Clinical suspicion for COVID-19 associated hypercoagulable state. Patient should be on anticoagulation for least 3 to 6 months. Intermittent response to diuretics likely secondary to improved pulmonary hypertension. Patient is still requiring significant amount of FiO2 to maintain saturations. Would anticipate some improvement in PEs given 5 days of anticoagulation. Will obtain a sputum culture. No fever has been noted, but patient does have a leukocytosis. Patient is on steroids at this time. Chest imaging will be of limited utility as groundglass opacities from Covid would be expected for the next 4 to 6 weeks. 2. Diabetes mellitus type 2/hyperlipidemia/BPH/history of smoking Complicates care, management, recovery and prognosis. We will have to watch blood sugars closely, especially if steroids initiated. Will increase basal insulin to twice daily. Outpatient work-up for COPD would be recommended. Patient will need a walking oximetry prior to discharge. Subjective Subjective Patient did okay overnight. Patient reports significant improvement in nasal congestion following initiation of Airvo. Patient does report a significant cough overnight that is producing clear to white sputum. Left-sided chest discomfort noted. Patient states this originates in the left upper quadrant of the abdomen and radiates to the scapula in the back. No hemoptysis is been reported. Objective Data Objective Data Vital Signs: Vital Signs Temp Pulse Resp BP Pulse Ox 36.6 C 86 17 110/65 96 03/30/21 03:25 03/30/21 03:25 03/30/21 03:25 03/30/21 03:25 03/30/21 05:07 Oxygen Flow Rate (L/min) 15 Oxygen Delivery Method Airvo Weight: 92.9 kg Body Mass Index (BMI) 27.8 Intake & Output: Intake and Output for Last 24 Hours 03/28/21 03/29/21 03/30/21 23:59 23:59 23:59 Intake Total 1740 / 1740 1080 / 1580 800 / 800 Output Total 4227 / 4227 2950 / 3550 1300 / 1300 Balance -2487 / -2487 -1870 / -1970 -500 / -500 Lab / Micro Data Result Diagrams: 03/30/21 06:23 03/30/21 06:23 Labs: Laboratory Results - last 24 hr 03/29/21 07:25: POC Glucose 174 H 03/29/21 10:58: POC Glucose 275 H 03/29/21 15:57: POC Glucose 492 H* 03/29/21 18:04: POC Glucose 418 H 03/29/21 21:56: POC Glucose 416 H 03/30/21 06:23: WBC 15.9 H, RBC 4.51 L, Hgb 14.7, Hct 42.5, MCV 94.2 H, MCH 32.6 H, MCHC 34.6, RDW Std Deviation 42.4, RDW Coeff of Quin 12.2, Plt Count 349, MPV 10.6, Immature Gran % (Auto) 1.700 H, Neut % (Auto) 78.2 H, Lymph % (Auto) 13.2 L, [place] % (Auto) 6.2, Eos % (Auto) 0.5, Baso % (Auto) 0.2, Absolute Neuts (auto) 12.4 H, Absolute Lymphs (auto) 2.09, Nucleated RBC % 0 03/30/21 06:23: Sodium 135 L, Potassium 4.2, Chloride 101, Carbon Dioxide 27.0, Anion Gap 7, BUN 27 H, Creatinine 0.88, Estim Creat Clear Calc 79.61, Est GFR (MDRD) Af Amer 109, Est GFR (MDRD) Non-Af 90, BUN/Creatinine Ratio 30.7 H, Glucose 185 H, Calcium 8.8 Micro: Microbiology 03/25/21 15:27 Urine, Random Legionella Antigen - Final 03/25/21 15:27 Urine, Random Streptococcus pneumoniae Antigen (M - Final 03/25/21 06:47 Nasal Secretion SARS-CoV-2 Antigen (Rapid) - Final Physical Exam Const alert, oriented x3 and no apparent distress General Appearance: cooperative HEENT normocephalic and moist oral mucous membranes HEENT Narrative: No epistaxis noted Eyes PERRL, EOMs intact bilaterally and conjunctivae normal Neck supple and no JVD Chest inspection of chest normal Chest Narrative: Unable to reproduce pain with palpation Chest: symmetrical chest wall rise; Negative for crepitus Resp normal respiratory effort, no retractions and no use of accessory muscles Auscultation: crackles and diminished lung sounds; Negative for rales, rhonchi or wheezes Cardio regular rate, regular rhythm, S1 normal heart sound, S2 normal heart sound and no murmurs GI soft to palpation and non-distended GI Narrative: Mild tenderness to palpation in the left upper quadrant Extremity no clubbing, cyanosis or edema Skin no rashes or lesions noted Neuro no focal motor deficits and no sensory deficits noted Psych affect normal Appearance: appropriate Charges/Coding Visit Charges Inpatient E&M: 83708 Subs Hosp L3
[2021-03-30] MEDS: Acetaminophen 325 MG Tablet 650 MG PO ×2 (11:11→22:18)
--- NOTE | 2021-03-30 11:55 | PN.HOSP_ITS ---
Subjective Subjective Patient is a 75-year-old gentleman with recent COVID-19 diagnosis who presented to the emergency department with abdominal pain. An assessment of acute hypoxic respiratory failure secondary to COVID-19 pneumonia as well as pulmonary embolism the admitted to a monitored bed for further management Objective Data Objective Data Vital Signs: Vital Signs Temp Pulse Resp BP Pulse Ox 97.9 F 96 18 114/67 96 03/30/21 08:35 03/30/21 08:35 03/30/21 08:35 03/30/21 08:35 03/30/21 08:35 Oxygen Flow Rate (L/min) 15 Oxygen Delivery Method Airvo Weight: 92.9 kg Body Mass Index (BMI) 27.8 Intake & Output: Intake and Output for Last 24 Hours 03/28/21 03/29/21 03/30/21 23:59 23:59 23:59 Intake Total 1740 / 1740 1080 / 1580 800 / 800 Output Total 4227 / 4227 2950 / 3550 1300 / 1300 Balance -2487 / -2487 -1870 / -1970 -500 / -500 Lab / Micro Data Result Diagrams: 03/30/21 06:23 03/30/21 06:23 Labs: Laboratory Results - last 24 hr 03/29/21 15:57: POC Glucose 492 H* 03/29/21 18:04: POC Glucose 418 H 03/29/21 21:56: POC Glucose 416 H 03/30/21 06:23: WBC 15.9 H, RBC 4.51 L, Hgb 14.7, Hct 42.5, MCV 94.2 H, MCH 32.6 H, MCHC 34.6, RDW Std Deviation 42.4, RDW Coeff of Quin 12.2, Plt Count 349, MPV 10.6, Immature Gran % (Auto) 1.700 H, Neut % (Auto) 78.2 H, Lymph % (Auto) 13.2 L, [place] % (Auto) 6.2, Eos % (Auto) 0.5, Baso % (Auto) 0.2, Absolute Neuts (auto) 12.4 H, Absolute Lymphs (auto) 2.09, Nucleated RBC % 0 03/30/21 06:23: Sodium 135 L, Potassium 4.2, Chloride 101, Carbon Dioxide 27.0, Anion Gap 7, BUN 27 H, Creatinine 0.88, Estim Creat Clear Calc 79.61, Est GFR (MDRD) Af Amer 109, Est GFR (MDRD) Non-Af 90, BUN/Creatinine Ratio 30.7 H, Glucose 185 H, Calcium 8.8 Micro: Microbiology 03/25/21 15:27 Urine, Random Legionella Antigen - Final 03/25/21 15:27 Urine, Random Streptococcus pneumoniae Antigen (M - Final 03/25/21 06:47 Nasal Secretion SARS-CoV-2 Antigen (Rapid) - Final Physical Exam Narrative GENERAL: cooperative, on supplemental oxygen via Vapotherm HEENT: Atraumatic; EYES; Anicteric, Normal Conjunctiva NECK; supple, normal thyroid, RESPIRATORY: Diminished to auscultation CARDIOVASCULAR: Regular S1 S2, GI: soft, normoactive bowel sounds, : No Renal angle tenderness; EXTREMITIES: No edema, no clubbing, MUSCULOSKELETAL: no muscle waisting NEURO: Awake; no lateralizing signs. SKIN: No Rash PSYCH; Flat affect Assessment & Plan Assessment/Plan (1) Splenic infarct: (2) Pulmonary emboli: (3) Pneumonia due to COVID-19 virus: PLAN: Patient is a 75-year-old gentleman with recent COVID-19 diagnosis who presented to the emergency department with abdominal pain. An assessment of acute hypoxic respiratory failure secondary to COVID-19 pneumonia as well as pulmonary embolism the admitted to a monitored bed for further management 1. Acute hypoxic respiratory failure ?Secondary to combination of COVID-19 pneumonia and pulmonary embolism. Managed with supplemental oxygen via Vapotherm 2. COVID-19 induced hypercoagulable state ?Patient presented with acute pulmonary embolism as well as splenic infarct. Patient managed with systemic anticoagulation with Eliquis. 2D echo obtained came back unremarkable 3. Acute COVID-19 pneumonia ?Patient managed with Decadron as well as supplemental oxygen as discussed above 4. Diabetes mellitus type 2 ?Held oral medication. Please on Accu-Cheks before meals and at bedtime with sliding scale coverage 5. Dyslipidemia ?Patient is on atorvastatin as well as colestipol did continue 6. Allergic rhinitis ?Patient is on cetirizine daily 7. BPH ?Patient is on finasteride and tamsulosin did continue 8. Physical deconditioning - Requested for PT OT eval and social media strategist to assist with discharge planning Charges/Coding Visit Charges Inpatient E&M: 26153 Subs Hosp L2
--- NOTE | 2021-03-30 13:01 | CASEMGMT ---
JULIOCESAR met with patient and re-introduced self. JULIOCESAR asked patient where he got his COVID test and he used a home test from [facility]. Shannan ACOSTA
[2021-03-30 15:55] LABS: Bedside Glucose 234 mg/dL (70-110)
[2021-03-30 17:00] LABS: Bedside Glucose 395 mg/dL (70-110)
[2021-03-30] MEDS: Atorvastatin Calcium 20 MG Tablet PO (21:03)
[2021-03-30 22:16] LABS: Bedside Glucose 252 mg/dL (70-110)
[2021-03-31] VITALS (8 sets, daily range): BP systolic 108–142; BP diastolic 70–87; PULSE 81–103; RESP 18–20; TEMP 36.2–36.7; O2SAT 85–97
--- NOTE | 2021-03-31 01:51 | EKG12_ITS ---
Test Reason : CP Blood Pressure : / mmHG Vent. Rate : 084 BPM Atrial Rate : 084 BPM P-R Int : 152 ms QRS Dur : 094 ms QT Int : 390 ms P-R-T Axes : 066 -08 010 degrees QTc Int : 460 ms Normal sinus rhythm Nonspecific T wave abnormality Abnormal ECG Confirmed by CAROLYN PAIGE, FELICIA ([id number]), city editor TELLY LAMB ([id number]) on 04/01/2021 8:41:16 AM Referred By: CAROLYN Confirmed By:FELICIA LEON MD
[2021-03-31] MEDS: Acetaminophen 325 MG Tablet 650 MG PO ×2 (04:05→09:09)
[2021-03-31 07:04] LABS: Absolute Lymphocyte Count 1.97 X10^3/uL (0.83-4.51); Absolute Neutrophil Count 11.2 X10^3/uL (2.0-7.7); Basophil# 0.06 X10^3/uL; Basophil% 0.4 % (0-1); Eosinophils% 0.7 % (0-5); Hematocrit 41.7 % (40-54); Hemoglobin 13.9 g/dL (13.0-16.5); Lymphocyte # 1.97 X10^3/ul (0.83-4.51); Lymphocyte % 13.6 % (19-41); Mean Corp Hgb Conc 33.3 g/dL (32-36); Mean Corpuscular Hgb 31.7 pg (27.0-32.0); Mean Platelet Vol. 10.6 fl (6.2-12.0); Monocyte% 6.9 % (0-10); NRBC Flagged by Analyzer 0 % (0-5); Neutrophil # 11.17 X10^3/uL (2.7-7.7); Neutrophil % 76.9 % (47-70); Platelet Count 365 K/mm3 (150-450); RBC Distribution Width CV 12.2 % (11.6-14.6); RBC Distribution Width SD 42.3 fl (35.1-43.9); Red Blood Count 4.39 M/mm3 (4.6-6.2); White Blood Count 14.5 K/mm3 (4.4-11.0)
[2021-03-31 07:11] LABS: Bedside Glucose 157 mg/dL (70-110)
[2021-03-31 07:11] LABS: Bedside Glucose 160 mg/dL (70-110)
[2021-03-31] MEDS: Ipratropium/Albuterol Sulfate 3 ML AMPUL.NEB INHALATION ×2 (07:15→13:01)
[2021-03-31 07:47] LABS: ALB/GLOB Ratio 0.5 RATIO (0.9-2.4); AST(SGOT) 15 U/L (15-37); Alanine Aminotransfer ALT/SGPT 29 U/L (16-61); Albumin, Serum 1.9 g/dL (3.2-5.0); Alkaline Phosphatase 77 U/L (45-117); Anion Gap 8 (5-15); BUN 24 mg/dL (7-18); BUN/Creat Ratio 27.2 RATIO (10-20); Calcium,Total 8.3 mg/dL (8.5-10.1); Chloride 102 mmol/L (98-107); Creatinine, Serum 0.88 mg/dL (0.70-1.30); EST Glomerular Filtration Rate 90 mL/min (>60); Est Glom Filt Rate - Afr Amer 108 mL/min (>60); Estimated Creatinine Clearance 79.61 ml/min; Glucose 248 mg/dL (74-106); Magnesium 2.2 mg/dL (1.6-2.6); Protein, Total 5.9 g/dL (6.4-8.2); Sodium Level 135 mmol/L (136-145)
[2021-03-31] MEDS: Insulin Lispro 100 UNIT/ML INSULN.PEN SC ×2 (09:07→11:25)
[2021-03-31] MEDS: Insulin Lispro 100 UNIT/ML INSULN.PEN 10 UNIT SC ×2 (09:07→11:24)
[2021-03-31] MEDS: dexAMETHasone 4 MG Tablet 6 MG PO (09:11)
[2021-03-31] MEDS: Pregabalin 50 MG Capsule 100 MG PO (09:11)
[2021-03-31] MEDS: APIXABAN 5 MG TABLET 10 MG PO (09:12)
[2021-03-31] MEDS: Finasteride 5 MG Tablet PO (09:13)
[2021-03-31] MEDS: Loratadine 10 MG Tablet PO (09:13)
[2021-03-31 09:41] LABS: Bedside Glucose 335 mg/dL (70-110)
--- NOTE | 2021-03-31 11:02 | DCINST_ITS ---
Discharge Instructions Diet Discharge Diet: No restrictions Activity Discharge Activity: Return to Normal Activity Weight Bearing Status: Weight bearing as tolerated Dressing / Incision Call your doctor if you observe: Fever of 101 or Higher, Numbness or Tingling, Shortness of breath, Dizziness, Chest pain, Increased palpitations (irregular heartbeat) and Calf discomfort Follow Up Care Please Follow Up With: Primary care provider When: Within the next two weeks. Test Results: Test results from this visit will be discussed in further detail at your follow-up appointment, if applicable. Discharge Plan Admission Admit Date/Time: 03/25/21 08:48 Primary Reason for Your Visit: Abdominal pain with Shortness of breath Attending Provider: Holden Langley Primary Care Provider: [facility],[place] Consulting Providers: Uriel Hennessy ; Shane Miguel ; Hilary Barksdale [employer]IDENT[employer] ELECTRICIAN Discharge Orders/Prescriptions Prescriptions: New dexamethasone [Decadron] 6 mg tablet 6 mg PO DAILY Qty: 3 RF: 0 Eliquis 5 mg tablet 5 mg PO BID Qty: 60 RF: 0 Continued atorvastatin 20 mg Tablet 20 mg PO QHS RF: 0 ketoconazole 2 % Shampoo 1 applic TOPICAL DAILY RF: 0 cetirizine 10 mg Tablet 10 mg PO DAILY RF: 0 cyanocobalamin (vitamin B-12) 1,000 mcg Tablet 1,000 mcg PO DAILY RF: 0 tamsulosin 0.4 mg Capsule 0.8 mg PO QHS RF: 0 calcium polycarbophil 625 mg Tablet 625 mg PO DAILY RF: 0 camphor-menthol 0.5-0.5 % Lotion 1 applic TOPICAL 5X/DAY PRN (Reason: Itching) RF: 0 hydrocortisone 2.5 % Cream 1 applic TOPICAL BID PRN (Reason: Scaly/red skin on face and ears) RF: 0 fluticasone propionate 50 mcg/actuation [place],Suspension 2 spray INTRANASAL DAILY RF: 0 colestipol 1 gram Tablet 1 g PO BID RF: 0 finasteride 5 mg Tablet 5 mg PO DAILY RF: 0 vardenafil 20 mg Tablet 20 mg PO DAILY PRN (Reason: Erectile Dysfunction) RF: 0 pregabalin 100 mg Capsule 100 mg PO BID RF: 0 diclofenac sodium 1 % Gel 2 g TOPICAL BID RF: 0 vit C-vit [id number] Capsule 1 cap PO BID RF: 0 cholecalciferol (vitamin D3) 50 mcg (2,000 unit) Tablet 50 mcg PO DAILY RF: 0 empagliflozin 25 mg Tablet 12.5 mg PO DAILY RF: 0 cyclosporine 0.05 % Drops 1 drp EACH EYE Q12H RF: 0 [facility] - Within 2 Weeks Disposition Disposition (needs filled in before D/C Order can be placed): Home, Self Care
--- NOTE | 2021-03-31 11:06 | CASEMGMT ---
Addendum entered by Guillermina Mercer 03/31/21 12:37: Pt already provided Eliquis 30 day free trial card and pt states he still has the card. Pt states [facility] after [facility]. Attempted to call [facility] to verify cost for pt for next month if [facility] but unable to reach them at this time. Pt states no further concerns at this time. Jt JUAN CM Original Note: Pt qualifies for 3 liters with exertion home oxygen and states no preference for DME company at this time. Pt states he does have [facility] well as [facility]. Script for home oxygen faxed to [facility] and call to [facility] to notify of pt. Pt states no need for any further therapy or HHC at discharge. Pt has been independent in room. Pt has own pulse ox at bedside and pt aware to keep oxygen level 89% or greater at home, voices understanding. Pt does states will need [facility] van transport home and KIYA Vickers city secretary updated, voices understanding. Pt voices no further questions/concerns/needs. Jt JUAN CM
[2021-03-31 11:45] LABS: Bedside Glucose 203 mg/dL (70-110)
--- NOTE | 2021-03-31 14:35 | PCM.DC.SUM ---
Documented by User: Obed SCHRADER 03/31/21 14:40 Providers Date of Admission: 03/25/21 Primary Care Physician: [facility] Consultations 03/29/21 07:06 Consult: Laboratory Geneticist / Pulmonary Medicine Routine Consulting Provider: [facility] Reason for Consult: Respiratopry failure EMERGENT Consult: No MD Notified: Yes Date Notified: 03/29/21 Time Notified: 07:44 Method of Notification: Text Reason For Visit: COVID, PE, SPLENIC INFARCT Diagnosis Discharge Diagnosis (1) Splenic infarct: Status: Acute Code(s): D73.5 - Infarction of spleen (2) Pulmonary emboli: Status: Acute Code(s): I26.99 - Other pulmonary embolism without acute cor pulmonale (3) Pneumonia due to COVID-19 virus: Status: Acute Code(s): U07.1 - COVID-19; J12.82 - Pneumonia due to coronavirus disease 2019 Medications at Discharge Home Medications atorvastatin 20 mg PO QHS 03/25/21 calcium polycarbophil 625 mg PO DAILY 03/25/21 camphor-menthol 1 applic TOPICAL 5X/DAY PRN 03/25/21 cetirizine 10 mg PO DAILY 03/25/21 cholecalciferol (vitamin D3) 50 mcg PO DAILY 03/25/21 colestipol 1 g PO BID 03/25/21 cyanocobalamin (vitamin B-12) 1,000 mcg PO DAILY 03/25/21 cyclosporine 1 drp EACH EYE Q12H 03/25/21 diclofenac sodium 2 g TOPICAL BID 03/25/21 empagliflozin 12.5 mg PO DAILY 03/25/21 finasteride 5 mg PO DAILY 03/25/21 fluticasone propionate 2 spray INTRANASAL DAILY 03/25/21 hydrocortisone 1 applic TOPICAL BID PRN 03/25/21 ketoconazole 1 applic TOPICAL DAILY 03/25/21 pregabalin 100 mg PO BID 03/25/21 tamsulosin 0.8 mg PO QHS 03/25/21 vardenafil 20 mg PO DAILY PRN 03/25/21 vit C-vit [id number]-[id number]-om-3 1 cap PO BID 03/25/21 apixaban [Eliquis] 5 mg PO BID #60 tab 03/31/21 dexamethasone [Decadron] 6 mg PO DAILY #3 tab 03/31/21 insulin glargine [Lantus Solostar U-100 Insulin] 20 unit SUBCUT BID #15 ml 03/31/21 pen needle, diabetic, safety #100 ea 03/31/21 Hospital Course Procedures 2-D Echocardiogram and Transesophageal Echo Summary of Care Provided Minutes Spent on Discharge: 35 Hospital Course: Disposition: Patient to discharge with home health. 1) Acute hypoxic respiratory failure secondary to COVID-19 infection. Secondary to combination of COVID-19 pneumonia and pulmonary embolism. Patient was initiated on therapeutic dose of Eliquis and discharged on maintenance dose. Patient was also continued on Decadron to complete 10-day course. 2) DM2 Continue empagliflozin, Lantus insulin added to patient's home regimen. 3) dyslipidemia Continue atorvastatin and Colestipol. 4) allergic rhinitis Continue cetirizine. 5) BPH Continue Flomax and tamsulosin. 6) physical debility Patient assess for PT/OT eval and was discharged on home health. Patient seen by Obed Venegas PA-C, under the supervision of Dr. Langley. Physical Exam Narrative Patient is a 75-year-old male comfortably resting in bed, alert and orient x3. Patient report significant improvement in his shortness of breath from admission. Denies development of any new symptoms overnight. Does not appear in acute distress. Const alert, oriented x3 and no apparent distress HEENT normocephalic, head/scalp atraumatic and hearing grossly normal bilaterally Eyes PERRL, EOMs intact bilaterally and conjunctivae normal Neck no lymphadenopathy, supple and no JVD Resp normal respiratory effort, no retractions, no use of accessory muscles and clear to auscultation bilaterally Cardio regular rate, regular rhythm, no murmurs and no JVD GI normal to inspection, nondistended, normoactive bowel sounds, soft to palpation and non-tender Extremity normal to inspection, full ROM and no clubbing, cyanosis or edema Skin no rashes or lesions noted, no wounds and skin turgor normal Neuro CN's II-XII intact bilaterally Psych affect normal Weight / BMI Weight Weight: 204 lb 12.951 oz Body Mass Index (BMI) 27.8 ABG / Lab / Microbiology Data Result Diagrams: 03/31/21 06:34 03/31/21 06:34 Laboratory: Laboratory Results - last 24 hr 03/30/21 08:23: POC Glucose 160 H 03/30/21 08:24: POC Glucose 157 H 03/30/21 11:09: POC Glucose 234 H 03/30/21 16:48: POC Glucose 395 H 03/30/21 21:05: POC Glucose 252 H 03/31/21 06:34: WBC 14.5 H, RBC 4.39 L, Hgb 13.9, Hct 41.7, MCV 95.0 H, MCH 31.7, MCHC 33.3, RDW Std Deviation 42.3, RDW Coeff of Quin 12.2, Plt Count 365, MPV 10.6, Immature Gran % (Auto) 1.500 H, Neut % (Auto) 76.9 H, Lymph % (Auto) 13.6 L, [place] % (Auto) 6.9, Eos % (Auto) 0.7, Baso % (Auto) 0.4, Absolute Neuts (auto) 11.2 H, Absolute Lymphs (auto) 1.97, Nucleated RBC % 0 03/31/21 06:34: Sodium 135 L, Potassium 4.0, Chloride 102, Carbon Dioxide 25.0, Anion Gap 8, BUN 24 H, Creatinine 0.88, Estim Creat Clear Calc 79.61, Est GFR (MDRD) Af Amer 108, Est GFR (MDRD) Non-Af 90, BUN/Creatinine Ratio 27.2 H, Glucose 248 H, Calcium 8.3 L, Magnesium 2.2, Total Bilirubin 0.30, AST 15, ALT 29, Alkaline Phosphatase 77, Total Protein 5.9 L, Albumin 1.9 L, Globulin 4.0, Albumin/Globulin Ratio 0.5 L 03/31/21 09:05: POC Glucose 335 H 03/31/21 11:23: POC Glucose 203 H Microbiology: Microbiology 03/30/21 12:00 Sputum, Expectorated/Coughed Gram Stain - Final 03/25/21 15:27 Urine, Random Legionella Antigen - Final 03/25/21 15:27 Urine, Random Streptococcus pneumoniae Antigen (M - Final 03/25/21 06:47 Nasal Secretion SARS-CoV-2 Antigen (Rapid) - Final D/C Instructions Discharge Diet: No restrictions Weight Bearing Status: Weight bearing as tolerated Call your doctor if you observe: Fever of 101 or Higher, Numbness or Tingling, Shortness of breath, Dizziness, Chest pain, Increased palpitations (irregular heartbeat) and Calf discomfort Please Follow Up With: Primary care provider When: Within the next two weeks. Meaningful Use Info Meaningful Use Diagnoses (Choose all that apply): VTE VTE Anticoag overlap given w/in hospital stay or rx'd at tx?: Yes Pt receive overlap for 5 days?: Yes Discharge Plan Admission Admit Date/Time: 03/25/21 08:48 Primary Reason for Your Visit: Abdominal pain with Shortness of breath Attending Provider: Holden Langley Primary Care Provider: [facility] Consulting Providers: Uriel Hennessy ; Shane Miguel ; Hilary Barksdale IT OPERATIONS ANALYST Discharge Orders/Prescriptions Prescriptions: New dexamethasone [Decadron] 6 mg tablet 6 mg PO DAILY Qty: 3 RF: 0 Eliquis 5 mg tablet 5 mg PO BID Qty: 60 RF: 0 Lantus Solostar U-100 Insulin 100 unit/mL (3 mL) insulin pen 20 unit subcut BID Qty: 15 RF: 0 (DME) pen needle, diabetic, safety 29 gauge x 1/2 needle See Rx Instructions .ROUTE .MEDSUPPLY Qty: 100 RF: 0 Continued atorvastatin 20 mg Tablet 20 mg PO QHS RF: 0 ketoconazole 2 % Shampoo 1 applic TOPICAL DAILY RF: 0 cetirizine 10 mg Tablet 10 mg PO DAILY RF: 0 cyanocobalamin (vitamin B-12) 1,000 mcg Tablet 1,000 mcg PO DAILY RF: 0 tamsulosin 0.4 mg Capsule 0.8 mg PO QHS RF: 0 calcium polycarbophil 625 mg Tablet 625 mg PO DAILY RF: 0 camphor-menthol 0.5-0.5 % Lotion 1 applic TOPICAL 5X/DAY PRN (Reason: Itching) RF: 0 hydrocortisone 2.5 % Cream 1 applic TOPICAL BID PRN (Reason: Scaly/red skin on face and ears) RF: 0 fluticasone propionate 50 mcg/actuation [place],Suspension 2 spray INTRANASAL DAILY RF: 0 colestipol 1 gram Tablet 1 g PO BID RF: 0 finasteride 5 mg Tablet 5 mg PO DAILY RF: 0 vardenafil 20 mg Tablet 20 mg PO DAILY PRN (Reason: Erectile Dysfunction) RF: 0 pregabalin 100 mg Capsule 100 mg PO BID RF: 0 diclofenac sodium 1 % Gel 2 g TOPICAL BID RF: 0 vit C-vit [id number]-uzd-om-3 [id number] vl-bmtf-si-mg Capsule 1 cap PO BID RF: 0 cholecalciferol (vitamin D3) 50 mcg (2,000 unit) Tablet 50 mcg PO DAILY RF: 0 empagliflozin 25 mg Tablet 12.5 mg PO DAILY RF: 0 cyclosporine 0.05 % Drops 1 drp EACH EYE Q12H RF: 0 Referrals / Follow Up: [facility] [[facility] - Within 2 Weeks Disposition Disposition (needs filled in before D/C Order can be placed): Home, Self Care Documented by User: Dr. Holden Langley MD 03/31/21 14:58 Providers Date of Admission: 03/25/21 Reason For Visit: COVID, PE, SPLENIC INFARCT Medications at Discharge Home Medications atorvastatin 20 mg PO QHS 03/25/21 calcium polycarbophil 625 mg PO DAILY 03/25/21 camphor-menthol 1 applic TOPICAL 5X/DAY PRN 03/25/21 cetirizine 10 mg PO DAILY 03/25/21 cholecalciferol (vitamin D3) 50 mcg PO DAILY 03/25/21 colestipol 1 g PO BID 03/25/21 cyanocobalamin (vitamin B-12) 1,000 mcg PO DAILY 03/25/21 cyclosporine 1 drp EACH EYE Q12H 03/25/21 diclofenac sodium 2 g TOPICAL BID 03/25/21 empagliflozin 12.5 mg PO DAILY 03/25/21 finasteride 5 mg PO DAILY 03/25/21 fluticasone propionate 2 spray INTRANASAL DAILY 03/25/21 hydrocortisone 1 applic TOPICAL BID PRN 03/25/21 ketoconazole 1 applic TOPICAL DAILY 03/25/21 pregabalin 100 mg PO BID 03/25/21 tamsulosin 0.8 mg PO QHS 03/25/21 vardenafil 20 mg PO DAILY PRN 03/25/21 vit C-vit [id number]-vbfrlc-qiz-om-3 1 cap PO BID 03/25/21 apixaban [Eliquis] 5 mg PO BID #60 tab 03/31/21 dexamethasone [Decadron] 6 mg PO DAILY #3 tab 03/31/21 insulin glargine [Lantus Solostar U-100 Insulin] 20 unit SUBCUT BID #15 ml 03/31/21 pen needle, diabetic, safety #100 ea 03/31/21 Hospital Course Summary of Care Provided Hospital Course: This patient was seen in conjunction with Obed Venegas PA-C. I have independently interviewed and examined the patient and reviewed pertinent historical, laboratory, and other data. Please refer to Obed Venegas PA-C's note for details of this patient's presentation, findings, and recommendations. I have reviewed Obed Venegas PA-C's note and concur with documented findings. In brief, patient is an 75-year-old gentleman admitted with COVID-19 admitted to monitored bed for subsequent management Hospital course as documented above ABG / Lab / Microbiology Data Result Diagrams: 03/31/21 06:34 03/31/21 06:34 Discharge Plan Admission Admit Date/Time: 03/25/21 08:48 Primary Reason for Your Visit: Abdominal pain with Shortness of breath Attending Provider: Holden Langley Primary Care Provider: [facility],[place] Consulting Providers: Uriel Hennessy ; Shane Miguel ; Hilary Barksdale IT OPERATIONS ANALYST Discharge Orders/Prescriptions Prescriptions: New dexamethasone [Decadron] 6 mg tablet 6 mg PO DAILY Qty: 3 RF: 0 Eliquis 5 mg tablet 5 mg PO BID Qty: 60 RF: 0 Lantus Solostar U-100 Insulin 100 unit/mL (3 mL) insulin pen 20 unit subcut BID Qty: 15 RF: 0 (DME) pen needle, diabetic, safety 29 gauge x 1/2 needle See Rx Instructions .ROUTE .MEDSUPPLY Qty: 100 RF: 0 Continued atorvastatin 20 mg Tablet 20 mg PO QHS RF: 0 ketoconazole 2 % Shampoo 1 applic TOPICAL DAILY RF: 0 cetirizine 10 mg Tablet 10 mg PO DAILY RF: 0 cyanocobalamin (vitamin B-12) 1,000 mcg Tablet 1,000 mcg PO DAILY RF: 0 tamsulosin 0.4 mg Capsule 0.8 mg PO QHS RF: 0 calcium polycarbophil 625 mg Tablet 625 mg PO DAILY RF: 0 camphor-menthol 0.5-0.5 % Lotion 1 applic TOPICAL 5X/DAY PRN (Reason: Itching) RF: 0 hydrocortisone 2.5 % Cream 1 applic TOPICAL BID PRN (Reason: Scaly/red skin on face and ears) RF: 0 fluticasone propionate 50 mcg/actuation [place],Suspension 2 spray INTRANASAL DAILY RF: 0 colestipol 1 gram Tablet 1 g PO BID RF: 0 finasteride 5 mg Tablet 5 mg PO DAILY RF: 0 vardenafil 20 mg Tablet 20 mg PO DAILY PRN (Reason: Erectile Dysfunction) RF: 0 pregabalin 100 mg Capsule 100 mg PO BID RF: 0 diclofenac sodium 1 % Gel 2 g TOPICAL BID RF: 0 vit C-vit H-gccjlm-agb-om-3 [id number] et-nfew-tu-mg Capsule 1 cap PO BID RF: 0 cholecalciferol (vitamin D3) 50 mcg (2,000 unit) Tablet 50 mcg PO DAILY RF: 0 empagliflozin 25 mg Tablet 12.5 mg PO DAILY RF: 0 cyclosporine 0.05 % Drops 1 drp EACH EYE Q12H RF: 0 Referrals / Follow [facility]: [facility] [Primary [facility]] - Within 2 Weeks Disposition Disposition (needs filled in before D/C Order can be placed): Home, Self Care Charges/Coding Visit Charges Inpatient E&M: 12116 Disch Hosp Hospital Course Consultations Consultations: Consultations 03/29/21 07:06 Consult: Laboratory Geneticist / Pulmonary Medicine Routine Consulting Provider: [facility] Reason for Consult: Respiratopry failure EMERGENT Consult: No MD Notified: Yes Date Notified: 03/29/21 Time Notified: 07:44 Method of Notification: Text
== END 2021-03-31 15:25 | disposition home health service (06) | DRG 177 ==
LOC: ED 09:00 → PCU 09:22
PROVIDERS: Emergency Medicine; Admitting Provider Family Medicine; Emergency Provider Emergency Medicine; Visit Provider Internal Medicine
DX: U07.1 COVID-19 (principal); J12.82 Pneumonia due to coronavirus disease 2019; J96.01 Acute respiratory failure with hypoxia; I26.99 Other pulmonary embolism without acute cor pulmonale; D73.5 Infarction of spleen; E78.5 Hyperlipidemia, unspecified; J30.9 Allergic rhinitis, unspecified; N40.0 Benign prostatic hyperplasia without lower urinary tract symptoms; E11.40 Type 2 diabetes mellitus with diabetic neuropathy, unspecified; Z88.0 Allergy status to penicillin; Z87.891 Personal history of nicotine dependence; I27.20 Pulmonary hypertension, unspecified; Z79.4 Long term (current) use of insulin
CPT/HCPCS: 36415; 71046; 71275; 74177; 80048; 80053; 81001; 82962; 83605; 83735; 84484; 85025; 85610; 85730; 87070; 87205; 87426; 87449; 93005; 93306; 94640; 94660; 94667; 94668; 99285; J7030; Q9957; Q9967; A4216; C8929; J1940; J2405; J3490

== ENCOUNTER 2024-03-07 13:48 | Emergency (ER) | payer OTHER, SELFPAY ==
[2024-03-07 13:49] VITALS: BP 168/89; PULSE 94; RESP 16; TEMP 36.8; O2SAT 97; BMI 27.9
[2024-03-07 14:48] LABS: Absolute Lymphocyte Count 1.71 X10^3/uL (0.83-4.51); Absolute Neutrophil Count 4.5 X10^3/uL (2.0-7.7); Basophil# 0.06 X10^3/uL; Basophil% 0.8 % (0-1); Eosinophil# 0.23 X10^3/uL; Eosinophils% 3.1 % (0-5); Hematocrit 44.9 % (40-54); Hemoglobin 15.1 g/dL (13.0-16.5); Lymphocyte # 1.71 X10^3/ul (0.83-4.51); Lymphocyte % 23.4 % (19-41); Mean Corp Hgb Conc 33.6 g/dL (32-36); Mean Corpuscular Volume 98.2 fL (80-94); Mean Platelet Vol. 11.4 fl (6.2-12.0); Monocyte# 0.79 X10^3/uL; Monocyte% 10.8 % (0-10); NRBC Flagged by Analyzer 0 % (0-5); Neutrophil % 61.5 % (47-70); Platelet Count 219 K/mm3 (150-450); RBC Distribution Width CV 12.9 % (11.6-14.6); RBC Distribution Width SD 46.4 fl (35.1-43.9); Red Blood Count 4.57 M/mm3 (4.6-6.2); White Blood Count 7.3 K/mm3 (4.4-11.0)
[2024-03-07] MEDS: Ondansetron 4 MG/2 ML Vial IV (14:55)
[2024-03-07 15:23] LABS: ALB/GLOB Ratio 0.9 RATIO (0.9-2.4); AST(SGOT) 19 U/L (15-37); Alanine Aminotransfer ALT/SGPT 24 U/L (16-61); Albumin, Serum 3.4 g/dL (3.2-5.0); Alkaline Phosphatase 71 U/L (45-117); Anion Gap 7 (5-15); BUN 17 mg/dL (7-18); Calcium,Total 9.1 mg/dL (8.5-10.1); Chloride 111 mmol/L (98-107); EST Glomerular Filtration Rate 77 mL/min (>60); Est Glom Filt Rate - Afr Amer 93 mL/min (>60); Estimated Creatinine Clearance 72.32 ml/min; Globulin 3.6 g/dL (2.2-4.2); Glucose 119 mg/dL (74-106); Lipase 33 U/L (13-75); Potassium 4.4 mmol/L (3.5-5.1); Sodium Level 140 mmol/L (136-145)
[2024-03-07 15:48] VITALS: BP 162/78; PULSE 80; RESP 18
[2024-03-07 16:24] LABS: Bacteria 0 SEEN /hpf (None Seen); Mucous, Urine 0 SEEN /hpf (<or=2+); Red Blood Cells-Urine 0 SEEN /hpf (0-5); Squamous Epithelial Cells - UA 0 SEEN /hpf (0-5); White Blood Cells 0 SEEN /hpf (0-5)
[2024-03-07 16:27] LABS: Color, Urine Yellow (Yellow); Glucose, Dipstick 1000 mg/dl (Normal); Ketone-Dipstick 5 mg/dl (Negative); Leukocyte Esterase-Dipstick Negative /ul (Negative); Nitrite-Dipstick Negative (Negative); Occult Blood-Urine Negative /ul (Negative); Protein-Dipstick 30 mg/dl (Negative); Specific Gravity, Urine 1.015 (1.002-1.030); Urine Bilirubin Dipstick Negative (Negative); Urine Clarity Clear (Clear); Urine Urobilinogen Normal (Normal)
[2024-03-07 17:00] VITALS: BP 157/78; PULSE 81; RESP 16; TEMP 36.6; O2SAT 97
== END 2024-03-07 17:16 | disposition home or self-care (01) ==
PROVIDERS: Emergency Provider Surgery; Visit Provider Surgery
DX: K57.30 Diverticulosis of large intestine without perforation or abscess without bleeding (principal); E11.9 Type 2 diabetes mellitus without complications; K92.2 Gastrointestinal hemorrhage, unspecified; E78.5 Hyperlipidemia, unspecified; K44.9 Diaphragmatic hernia without obstruction or gangrene; Z87.891 Personal history of nicotine dependence; Z86.711 Personal history of pulmonary embolism; Z79.01 Long term (current) use of anticoagulants
CPT/HCPCS: 74177; 80053; 81001; 82274; 83690; 85025; 96374; 99283; Q9967; A4216; J2405